=== PATIENT | female | born 1985 | race Caucasian/White ===

== ENCOUNTER 2020-06-15 10:00 | Outpatient (RCR) | payer MEDICAID, SELFPAY ==
[2020-06-15 10:07] VITALS: BP 115/74; PULSE 76; O2SAT 98
== END 2020-07-20 09:19 | disposition home or self-care (01) ==
LOC: HO.PTCHIC 10:00
PROVIDERS: PCP Internal Medicine; Visit Provider Internal Medicine
DX: R42 Dizziness and giddiness (principal)
CPT/HCPCS: 97161

== ENCOUNTER 2020-12-07 10:05 | Outpatient (REF) | payer MEDICAID, SELFPAY | END 2020-12-07 10:06 | disposition home or self-care (01) | LOC: HO.HMGCX 10:05 | PROVIDERS: PCP Internal Medicine; Visit Provider Internal Medicine | DX: Z13.89 Encounter for screening for other disorder (principal) ==

== ENCOUNTER 2020-12-11 10:04 | Outpatient (REF) | payer MEDICAID, SELFPAY ==
--- NOTE | ~2020-12-11 | US_ITS ---
EXAMINATION: US ABDOMEN COMPLETE CLINICAL INFORMATION: Cholesterolosis of gallbladder. COMPARISON: None TECHNIQUE: Real-time imaging of the abdominal viscera. FINDINGS: PANCREAS: Normal. ABDOMINAL AORTA: The proximal, mid, and distal segments are normal in caliber. INFERIOR VENA CAVA: Visualized portions are normal. LIVER: Normal. The liver is normal in size. The liver contour is normal. Parenchymal echogenicity is normal. No focal hepatic lesion. There is no intrahepatic biliary duct dilatation seen. GALLBLADDER: 4 mm and 2 mm nonmobile cholesterol polyps are seen. The gallbladder is physiologically distended without evidence of stones, sludge, wall thickening or pericholecystic fluid. COMMON BILE DUCT: Normal in caliber measuring 0.52 cm in diameter. RIGHT KIDNEY: Normal. No hydronephrosis. No renal calculi or focal parenchymal lesions. The kidney measures 10.7 cm in maximum dimension. LEFT KIDNEY: Normal. No hydronephrosis. No renal calculi or focal parenchymal lesions. The kidney measures 10.4 cm in maximum dimension. SPLEEN: Normal. The spleen measures 9.3 cm in maximum dimension. FREE FLUID: None. US/US abdomen complete IMPRESSION: 4 mm and 2 mm nonmobile gallbladder cholesterol polyps are noted. The examination is otherwise unremarkable.
== END 2020-12-11 10:05 | disposition home or self-care (01) ==
LOC: HO.HMGCX 10:04
PROVIDERS: PCP Internal Medicine; Visit Provider Internal Medicine
DX: K82.4 Cholesterolosis of gallbladder (principal)
CPT/HCPCS: 76700

== ENCOUNTER 2021-01-21 08:57 | Outpatient (REF) | payer MEDICAID, SELFPAY ==
--- NOTE | ~2021-01-21 | FL_ITS ---
EXAMINATION: FL BARIUM SWALLOW CLINICAL INFORMATION: Dysphagia COMPARISON: None TECHNIQUE: Barium swallow examination is performed using fluoroscopic evaluation in addition to multiple fluoroscopic spot views. The patient is imaged both upright and prone and using both thick and thin sulfate along with effervescent granules. Barium tablet was also administered. Fluoroscopy time: 1 minutes DAP: 5 Gycm2 Images: 32 FINDINGS: The swallowing mechanism is normal. No aspiration or penetration is seen. Esophageal motility is normal. There is mild gastroesophageal reflux. No hernia, mass or stricture is seen. The barium tablet passed freely into the stomach. FL/FL barium swallow IMPRESSION: Mild gastroesophageal reflux otherwise unremarkable exam.
== END 2021-01-21 08:58 | disposition home or self-care (01) ==
LOC: HO.XRAY 08:57
PROVIDERS: Visit Provider Family Medicine
DX: R13.10 Dysphagia, unspecified (principal)
CPT/HCPCS: 74220

== ENCOUNTER 2022-01-15 16:02 | Outpatient (REF) | payer MEDICAID, SELFPAY ==
--- NOTE | ~2022-01-15 | XR_ITS ---
EXAMINATION: XR LUMBOSACRAL SPINE WITH OBLIQUES CLINICAL INFORMATION: Lumbago with sciatica. COMPARISON: None TECHNIQUE: AP, both oblique, and lateral views of the lumbar spine. Lateral view of the lumbosacral junction. FINDINGS: The vertebral heights and alignment is normal. There is a rudimentary disc at the S1-S2 disc level. The vertebral bodies and posterior elements are normal. No lytic or sclerotic process seen. The paraspinal soft tissues are normal. Incidental finding of an IUD in the pelvis is noted. XR/XR lumbar spine 4V min IMPRESSION: Unremarkable lumbar spine exam examination.
== END 2022-01-15 16:03 | disposition home or self-care (01) ==
LOC: HO.HMGCX 16:02
PROVIDERS: PCP Internal Medicine; Visit Provider Emergency Medicine
DX: M54.41 Lumbago with sciatica, right side (principal); M54.42 Lumbago with sciatica, left side
CPT/HCPCS: 72110

== ENCOUNTER 2022-04-15 08:39 | Outpatient (REF) | payer MEDICAID, SELFPAY ==
[2022-04-15 10:11] LABS: Alanine Aminotransferase 31 U/L (0-31); Albumin Level 4.6 g/dL (3.5-5.0); Alkaline Phosphatase 52 U/L (39-117); Aspartate Amino Transferase 19 U/L (5-31); Bilirubin Direct < 0.2 mg/dL (0.0-0.5); Bilirubin Total 0.5 mg/dL (0.0-1.0); Cholesterol 220 mg/dL; HDL Cholesterol 57 mg/dL; LDL Cholesterol Calculated 138 mg/dl; Total Protein 7.5 g/dL (6.5-8.0); Triglycerides 126 mg/dL
== END 2022-04-15 08:40 | disposition home or self-care (01) ==
LOC: HO.LAB 08:39
PROVIDERS: PCP Internal Medicine; Visit Provider Internal Medicine
DX: E78.00 Pure hypercholesterolemia, unspecified (principal)
CPT/HCPCS: 36415; 80061; 80076

== ENCOUNTER 2022-04-18 12:54 | Outpatient (REF) | payer MEDICAID, SELFPAY ==
[2022-04-18 14:59] LABS: Influenza A PCR NEGATIVE (Negative); Influenza B PCR NEGATIVE (Negative); Resp Syncy Virus RNA Qual PCR NEGATIVE (Negative); SARS COV2 PCR INHOUSE NEGATIVE (Negative)
== END 2022-04-18 12:55 | disposition home or self-care (01) ==
LOC: HO.LAB 12:54
PROVIDERS: PCP Internal Medicine; Visit Provider Physician Assistant
DX: Z20.822 Contact with and (suspected) exposure to COVID-19 (principal)
CPT/HCPCS: 0241U

== ENCOUNTER 2022-08-15 13:22 | Emergency (ER) | payer MEDICAID, SELFPAY ==
[2022-08-15 13:23] VITALS: BP 123/76; PULSE 92; RESP 18; TEMP 36.7; O2SAT 97; BMI 26.6
--- NOTE | 2022-08-15 13:23 | ED.GENADULT ---
HPI - General Adult General Chief complaint: Upper Respiratory Symptoms Stated complaint: running nose Time Seen by Provider: 08/15/22 13:23 Source: patient Mode of arrival: ambulatory Limitations: no limitations History of Present Illness HPI narrative: Patient is a 36 year old assigned female at with no reported medical history presenting to the emergency department today with recent COVID-19 exposure. Patient states that she was recently exposed to someone confirmed to have COVID-19 and she would like PCR testing. Patient denies any dizziness, lightheadedness, abdominal pain, nausea, vomiting, fever, chills, blurry vision, double vision, loss of vision, chest pain, difficulty breathing, shortness of breath, back pain, night sweats, pain with urination, increased urinary frequency, increased urinary urgency, blood in her urine or stool, syncope or a near syncopal episode, recent trauma or falls, bowel incontinence, bladder incontinence, bowel retention, bladder retention, or any other complaints at this time. Onset (ago): day(s) Severity: mild Relieving factors: none Exacerbating factors: none Associated symptoms: denies other symptoms Treatments prior to arrival: none Related Data Allergies Allergy/AdvReac Type Severity Reaction Status Date / Time No Known Allergies Allergy Verified 08/15/22 13:25 Review of Systems Constitutional: Constitutional: Reports no additional constitutional complaints, Denies chills, Denies fever(s) and Denies night sweats Eyes: Eyes: Reports no additional eye complaints, Denies blurry vision, Denies change in vision, Denies diplopia, Denies eye discharge, Denies loss of vision and Denies eye pain ENT: Denies dizziness Cardiovascular: Cardiovascular: Reports no additional cardiovascular complaints, Denies chest pain, Denies lightheadedness, Denies Loss of Consciousness and Denies dyspnea Respiratory: Respiratory: Reports no additional respiratory complaints and Denies dyspnea Gastrointestinal: Gastrointestinal: Reports no additional gastrointestinal complaints, Denies abdominal pain, Denies melena, Denies hematochezia, Denies change in bowel habits and Denies change in stool character Genitourinary: Genitourinary: Denies hematuria, Denies urinary frequency, Denies dysuria, Denies urinary incontinence, Denies urinary hesitancy and Denies urinary urgency Musculoskeletal: Musculoskeletal: Reports no additional musculoskeletal complaints, Denies numbness and Denies tingling Neurologic: Denies dizziness, Denies loss of vision, Denies numbness and Denies tingling Psychiatric: Psychiatric: Reports no additional psychiatric complaints Endocrine: Endocrine: Reports no additional endocrine complaints Hematologic/Lymphatic: Hematologic/Lymphatic: Reports no additional hematologic/lymphatic complaints Allergic/Immunologic: Allergic/Immunologic: Reports no additional allergic/immunologic complaints [facility] Past Medical History Attestation statement: The following information was validated with the patient. Source: old records reviewed and nursing notes reviewed Medical History No known health problems Social History Social History Alcohol intake: never Smoked in Last 30 Days: No Use of substances other than those prescribed or required for medical reasons: No Advance Directives: No Advance Directives Information Provided: Yes Patient : No Physical Exam ED Vital Signs: Vital Signs - 24 hr 08/15/22 13:23 Temperature 98.0 F Pulse Rate 92 Respiratory Rate 18 Blood Pressure 123/76 Pulse Oximetry 97 Oxygen Delivery Method Room Air BMI result Body Mass Index 26.6 Const General: cooperative, no acute distress, alert and awake Nutritional Appearance: well nourished Orientation/consciousness: patient oriented x3 Limitations: no limitations HENMT Head: Yes normal to inspection and Yes atraumatic Ears: hearing grossly normal bilaterally and external ears normal General nose exam: Normal external nose present, no nasal discharge noted and no epistaxis Face and sinus: Yes normal facial exam, No abrasion and No laceration Mouth: Normal oral and palatal mucosa present, no drooling and no muffled voice Eyes General: appearance normal, both eyes and all related structures Periorbital: periorbital findings normal Eyelids: Yes eyelids normal Conjunctivae: conjunctivae normal Pupils: Equal, round and reactive pupils present EOM: EOMs intact bilaterally Neck Neck: Yes normal visual inspection, Yes full ROM and Yes no lymphadenopathy Chest Chest palpation & inspection: normal inspection of the chest Resp Effort & Inspection: normal respiratory effort and able to speak in complete sentences GI Inspection: Yes normal to inspection Neuro General: patient oriented x3 and moves all extremities Cranial nerves: Yes Equal, round and reactive pupils present Cognition (Neuro): normal cognition Motor exam (neuro): 5/5 motor strength present throughout Sensory Exam: Normal double simultaneous stimulation for sensation Coordination: [id number] test normal Extrem General: Yes normal to inspection, Yes full ROM and Yes capillary refill normal Psych Appearance: grossly normal Mental Status: mental status grossly normal Affect: normal affect Attitude: cooperative Thought process: Normal thought process present Thought content: Normal thought content present Insight: Good insight present (Psych) Medical Decision Making Medical Decision Making MDM Narrative: Patient is a 36 year old assigned female at with no reported medical history presenting to the emergency department today after COVID-19 exposure. Patient's physical exam was unremarkable. Patient's COVID/RSV/Influenza swab was negative. I explained my physical exam findings as well as all test results to the patient. I answered all questions asked by the patient. I stressed the importance of the patient taking her medication as prescribed. I stressed the importance of the patient following up with her primary care provider. I stressed the importance of the patient returning to the emergency department immediately if her symptoms were to worsen or if she were to develop any dizziness, shortness of breath, difficulty breathing, chest pain, blurry vision, loss of vision, nausea, vomiting, abdominal pain, fever, chills, back pain, or any other complaints. Patient verbalized agreement and understanding with this treatment plan and discharge. Differential Diagnosis Differential Diagnoses: The differential diagnosis associated with the presentation includes COVID-19 exposure Lab Data Labs: Lab Results 08/15/22 Range/Units 13:30 Influenza Type A (PCR) NEGATIVE (Negative) Influenza Type B (PCR) NEGATIVE (Negative) RSV RNA Qual (PCR) NEGATIVE (Negative) SARS-CoV-2 RNA (RT-PCR) NEGATIVE (Negative) Discharge Plan Discharge Clinical Impression: Close exposure to COVID-19 virus Patient Disposition: Home, Self-Care Instructions: COVID-19 (Coronavirus Disease 2019) (ED) Additional Instructions: Follow up with your primary care provider. Return to the emergency department immediately if your symptoms worsen or if you develop any dizziness, shortness of breath, difficulty breathing, chest pain, blurry vision, loss of vision, nausea, vomiting, abdominal pain, fever, chills, back pain, or any other complaints. Referrals: Avinash Jiménez MD [Primary Care Provider] - Interventions: ED Discharge Assessment Last Done: 08/15/22 13:29 Discharge Date/Time: 08/15/22 13:33 Print Language: Citizen Of [place]
--- NOTE | 2022-08-15 13:28 | PC.NURSE ---
PT HAD COVID EXPOSURE LAST WEEK AND WANTS COVID TEST DONE. NO SYMPTOMS.
--- OUTSIDE RECORDS SUMMARY | 2022-08-15 13:36 | XMS_ITS | Continuity of Care Document ---
Author Name Unknown Organization [facility] Address [address] [place] [id number]- Care Team Providers Care Antenna Installer Name Role Phone Tom White MD, Avinash Primary Care Phys ician [place] [facility] [place]s): 01/05/22 - 01/05/[address] [address]- Discharge Disposition: A-D/C Walkout Attending Physician: Not on Staff, Attending MD Admitting Physician: Not on Staff, Admitting MD Referring Physician: Not on Staff, Referring MD Allergies, Adverse Reactions, Alerts No Known Allergies Immunizations Given and Recorded Vaccine Date Status Refusal Reason influenza virus vaccine, inactivated 02/28/13 Give n influenza virus vaccine, inactivated 1 04/05/12 Gi kacie influenza virus vaccine, inactivated 03/30/06 Give n tetanus/diphtheria/pertussis, acel(Tdap) 2 12/15/11 Given Fluarix (oldterm) 3 03/17/11 Given Human Papillomavirus Vaccine 4 03/17/11 Given Human Papillomavirus Vaccine 5 12/19/09 Given Gardasil (oldterm) 6 05/17/10 Given influ virus vac, H1N1, inactive(oldterm) 7 04/03/09 Given Influenza Vaccine (oldterm) 8 01/22/09 Given 1Admin Note: VIS 11/2011 2Admin Note: VIS 05/22 3Admin Note: 12/03/10 VIS Given. 4Admin Note: 08/07/09 VIS Given. 5Admin Note: 06/12/06 VIS Given. 6Admin Note: Given in left deltoid. No problems or complaints. Remained in office to assess for reactions. Left without incident 7Admin Note: vis given dated 02/16 8Admin Note: vis given dated 11/15 Medications Anusol-HC 2.5% cream with applicator 1 application, Rectally, 2 times a day, # 30 Gm, 0 Refills, Maintenance, 12/16/21 18:36:00 EDT, Cream, [id number], Partial fill upon patient request if the prescription is for a schedule II opioid drug., 1 application Rectally 2 times a day, 1... Start Date: 12/16/21 Status: Ordered ibuprofen 600 mg oral tablet 1 tablet = 600 mg, By Mouth, 4 times a day, PRN Pain, # 40 tablet, 1 Refills, Maintenance, 09/12/1419:10:16, Tablet, 1 tablet By Mouth 4 times a day,PRN:Pain Start Date: 09/11/13 Status: Ordered Ortho Tri-Cyclen Lo oral tablet 1 tablet, By Mouth, Daily, # 28 tablet, 11 Refills, Maintenance, 11/27/20 16:19:00 EDT, Tablet, [id number], Partial fill upon patient request if the prescription is for a schedule II opioid drug., 1 tablet By Mouth Daily, 163.7, cm, 04/17/20 9... Start Date: 11/27/20 Status: Ordered Paragard IUD See Instructions, # 1 applicator, Maintenance, Inserted immediately , 10/12/12 11:37:53 Start Date: 10/12/12 Status: Ordered tuberculin purified protein derivative 5 tu/0.1 ml intradermal solution = 5 units, Intradermal, Once, Aplisol exp Lot [id number] Given R arm, # 1 each, 0 Refills, SoftStop, Solution Start Date: 05/06/13 Status: Ordered Vitamin B Complex oral tablet, extended release By Mouth, Daily, 0 Refills, Maintenance, 04/25/19 15:47:00 EST Start Date: 04/25/19 Status: Ordered Zofran 4 mg oral tablet 1 tablet = 4 mg, By Mouth, Every 8 hours, PRN as needed for nausea/vomiting, # 14 tablet, 0 Refills, Maintenance, 03/21/20 22:39:00 EST, Tablet, [id number], 163.7, cm, 06/13/19 14:47:00 EST, Height, 73.5, kg, 06/13/19 14:47:00 EST, Dry Weight Start Date: 03/21/20 Status: Ordered Zofran 4 mg oral tablet 1 tablet = 4 mg, By Mouth, Every 8 hours, PRN as needed for nausea/vomiting, # 15 tablet, 0 Refills, Maintenance, 03/25/20 13:08:00 EST, Tablet, [id number], Partial fill upon patient request,163.7, cm, 06/13/19 14:47:00 EST, Height, 73.5, kg,... Start Date: 03/25/20 Stop Date: 03/30/20 Status: Ordered Vital Signs Most recent to oldest [Reference Range]: 1 2 3 Height 160 cm (01/05/22 9:38 AM) 160 cm (01/05/22 8:40 AM) Weight 69 kg (01/05/22 9:38 AM) 69 kg (01/05/22 8:40 AM) Oxygen Saturation [94-100 %] 100 % (01/05/22 1:09 PM) 99 % (01/05/22 11:05 AM) 100 % (01/05/22 8:40 AM) Pulse Rate [55-90 bpm] 70 bpm (01/05/22 1:09 PM) 76 bpm (01/05/22 11:05 AM) 78 bpm (01/05/22 8:40 AM) Body Mass Index [18.5-24.99] 26.95 *H* (01/05/22 8:40 AM) Blood Pressure [90-138/55-84 mm Hg] 100/65mm Hg (01/05/22 1:09 PM) 105/58mm Hg (01/05/22 11:05 AM) 108/73mm Hg (01/05/22 8:40 AM) Respiratory Rate [16-30 br/min] 18 br/min (01/05/22 1:09 PM) 16 br/min (01/05/22 8:40 AM) Temperature [96.8-100.4 DegF] 96.6 DegF *L* (01/05/22 1:09 PM) 96.6 DegF *L* (01/05/22 11:05 AM) 98.5 DegF (01/05/22 8:40 AM) Mode of Delivery (Oxygen) Room air (01/05/22 1:09 PM) Room air (01/05/22 11:05 AM) Room air (01/05/22 8:40 AM) Blood pressure sites Arm, right (01/05/22 1:09 PM) Arm, right (01/05/22 11:05 AM) Arm, right (01/05/22 8:40 AM) Temperature Route Oral (01/05/22 1:09 PM) Temporal (01/05/22 11:05 AM) Oral (01/05/22 8:40 AM) Dry Weight 62 kg (01/05/22 9:38 AM) 62 kg (01/05/22 8:40 AM) Weight Obtained Via Patient/family stated (01/05/22 8:40 AM) Dry Weight Obtained Via Patient/family stated (01/05/22 8:40 AM) Social History Social History Type Response Smoking Status Never (less than 100 in lifetime) entered on: 10/19/18 Sex Female Care Team Personnel Name: Avinash Jiménez MD Address: [address] [place] [id number]
--- OUTSIDE RECORDS SUMMARY | 2022-08-15 13:36 | XMS_ITS | Continuity of Care Document ---
Author Name Unknown Organization [facility] Address [address] [address]- Care Team Providers Care C Software Developer Name Role Phone Mary Forrester MD Primary Care Physician [place] [facility] [place] 06[place]/19 [facility] [address] [address]- [facility] Attending Physician: AdmtrAlyssa Allergies, Adverse Reactions, Alerts Substance Reaction Severity Status NKA Active Immunizations Given and Recorded Vaccine Date Status [...] 8Admin Note: vis given dated 11/15 Medications ibuprofen 600 mg oral tablet 1 tablet = 600 mg, By Mouth, 4 times a day, PRN Pain, # 40 tablet, 1 Refills, Maintenance, 09/12/1419:10:16, Tablet, 1 tablet By Mouth 4 times a day,PRN:Pain Start Date: 09/11/13 Status: Ordered Paragard IUD See Instructions, # 1 applicator, Maintenance, Inserted immediately , 10/12/12 11:37:53 Start Date: 10/12/12 Status: Ordered tuberculin purified protein derivative 5 tu/0.1 ml intradermal solution = 5 units, Intradermal, Once, Aplisol exp Lot [id number] Given R arm, # 1 each, 0 Refills, SoftStop, Solution Start Date: 05/06/13 Status: Ordered Vitamin B Complex oral tablet, extended release By Mouth, Daily, 0 Refills, Maintenance, 04/25/19 15:47:00 EST Start Date: 04/25/19 Status: Ordered Problem List Condition Effective Dates Status Health Status Inform ant False labor(Confirmed) Active Social History Social History Type Response Smoking Status Never (less than 100 in lifetime) entered on: 10/19/18 Sex
--- OUTSIDE RECORDS SUMMARY | 2022-08-15 13:36 | XMS_ITS | Continuity of Care Document ---
Author Name Unknown [facility] Address [address] [place] [id number]- Care Team Providers Care Acid Operator Name Role Phone Tom White MD, Avinash Primary Care Phys ician En[place] [facility] [place] Date(s): 11/22/20 - 12/22/20 [facility] [address] [id number] Allergies, Adverse Reactions, Alerts Substance Reaction Severity [...] 5 units, Intradermal, Once, Aplisol exp Lot [id number] Given R arm, # 1 each, 0 [...] Date: 03/25/20 Stop Date: 03/30/20 Status: Ordered Social History Social History Type Response Smoking Status Never (less than 100 in lifetime) entered on: 10/19/18 Sex Female
--- OUTSIDE RECORDS SUMMARY | 2022-08-15 13:36 | XMS_ITS | Continuity of Care Document ---
Author Name Unknown Organization [facility] Address [address] [place] [address]- Care Team Providers Care Optical Laboratory Technician Name Role Phone Mary Forrester MD Primary Care Physician [phone] [place] [facility] [place] [facility] [address]th [place] [address]- Attending Physician: Nathaile Manzanares MD Admitting Physician: Nathalie Manzanares MD Referring Physician: Nathalie Manzanares MD Allergies, Adverse Reactions, Alerts Substance Reaction Severity [...] 5 units, Intradermal, Once, Aplisol exp Lot [id number] Given R arm, # 1 each, 0 [...]
--- OUTSIDE RECORDS SUMMARY | 2022-08-15 13:36 | XMS_ITS | Continuity of Care Document ---
Author Name Unknown Organization [facility] Address [address] [place] [address] [address] [place] [address]- Care Team Providers Care Check Processing Clerk Name Role Phone Tom White MD, Avinash Primary Care Phys ician [place] [facility] [place] - 01/15/[address] [place] [address]- Attending Physician: Jean Paul Hendrickson MD Referring Physician: Avinash Jiménez MD Allergies, Adverse Reactions, Alerts No Known [...] 5 units, Intradermal, Once, Aplisol exp Lot [id number] Given R arm, # 1 each, 0 [...] Refills, Maintenance, 03/25/20 13:08:00 EST, Tablet, [id number], Partial fill upon patient request,163.7, cm, 06/13/19 14:47:00 EST, Height, 73.5, kg,... Start Date: 03/25/20 Stop Date: 03/30/20 Status: Ordered Social History Social History Type Response Smoking Status Never (less than 100 in lifetime) entered on: 10/19/18 Sex Female Care Team Personnel Name: Tom White MD, Avinash Address: [address] [place] [id number]
--- OUTSIDE RECORDS SUMMARY | 2022-08-15 13:36 | XMS_ITS | Continuity of Care Document ---
Author Name Unknown Organization [facility] Address [address] [place] [address] [address] [place] [address]- Care Team Providers Care Teller Coordinator Name Role Phone Tom White MD, Avinash Primary Care Phys ician Encounter [facility] Date(s): 12/20/21 - 01/19/22 [facility] [address] [place], [place] [address] Attending Physician: Alyssa Benson Admitting Physician: AdmAlyssa chappell Referring Physician: AdmtrAlyssa Allergies, Adverse Reactions, Alerts No Known Allergies [...] 5 units, Intradermal, Once, Aplisol exp Lot [id number] Given R arm, # 1 each, 0 [...] Refills, Maintenance, 03/25/20 13:08:00 EST, Tablet, [id number], Partial fill upon patient request,163.7, cm, 06/13/19 14:47:00 EST, Height, 73.5, kg,... Start Date: 03/25/20 Stop Date: 03/30/20 Status: Ordered Social History Social History Type Response Smoking Status Never (less than 100 in lifetime) entered on: 10/19/18 Sex Female Care Team Personnel Name: Tom White MD, Avinash Address: [address] [place] [id number]
--- OUTSIDE RECORDS SUMMARY | 2022-08-15 13:37 | XMS_ITS | Continuity of Care Document ---
Author Name Unknown Organization [facility] Address [address] [place] [address] [address] [place] [address]- Care Team Providers Care Java J2Ee Application Developer Name Role Phone Tom White MD, Avinash Primary Care Phys ician Encounter [facility] Date(s): 12/16/21 - 01/15/22 [facility] [address] [place], [place] [address] Attending Physician: Alyssa Benson Admitting Physician: AdmAlyssa [...] 5 units, Intradermal, Once, Aplisol exp Lot [id number] Given R arm, # 1 each, 0 [...] Personnel Name: Tom White MD, Avinash Address: [address] [place] [id number]
--- OUTSIDE RECORDS SUMMARY | 2022-08-15 13:37 | XMS_ITS | Continuity of Care Document ---
Author Name [facility] Address [address] [place] [address]- Care Team Providers Care Tig Welder Name Role Phone Avinash Jiménez MD Primary Care Phys ician Encounter [facility] Date(s): 01/21/22 - 02/27/22 [facility] [address] [place] [address]- Attending Physician: Not on Staff, Attending MD Referring Physician: Avinash Jiménez MD Allergies, [...] 5 units, Intradermal, Once, Aplisol exp Lot [id number] Given R arm, # 1 each, 0 [...] Date: 03/25/20 Stop Date: 03/30/20 Status: Ordered Problem List Condition Confirmation Course Effective Dates Status Health St [facility] Informant Encounter for IUD removal 1 Confirmed Active 1paragard removed 01/21/22 after x-ray at [place] showed possible malposition and pt chose removal. Social History Social History Type Response Smoking Status Never (less than 100 in lifetime) entered on: 10/19/18 Sex Female Patient Care team information Personnel Name: Tom White MD, Avinash Address: Address: [address] [place] [id number]
--- OUTSIDE RECORDS SUMMARY | 2022-08-15 13:37 | XMS_ITS | Continuity of Care Document ---
Author Name Unknown Organization [facility] Address [address] [place] [address]- Care Team Providers Care Cytologist Name Role Phone Tom White MD, Avinash Primary Care Phys ician [facility] Date(s): 01/20[facility]22 - 03/07/22 [facility] [address] [address]- Attending Physician: Not on Staff, Attending MD Referring Physician: Radha SÁNCHEZ MOSAICIST, Yury Sorensen Allergies, Adverse Reactions, Alerts No Known Allergies [...] dated 02/16 8Admin Note: vis given dated 7/08 Medications Anusol-HC 2.5% cream with applicator 1 [...] 5 units, Intradermal, Once, Aplisol exp Lot [id number] Given R arm, # 1 each, 0 [...] Active 1paragard removed 01/21/22 after x-ray at [facility] showed possible malposition and pt chose removal. Social History Social History Type Response Smoking Status Never (less than 100 in lifetime) entered on: 10/19/18 Sex Female Patient Care team information Personnel Name: Tom White MD, Avinash Address: Address: [address] [place] [id number]
--- OUTSIDE RECORDS SUMMARY | 2022-08-15 13:37 | XMS_ITS | Continuity of Care Document ---
Author Name Unknown Organization [facility] Address [address] [place] [address]- Care Team Providers Care Check Processor Name Role Phone Tom White MD, Avinash Primary Care Phys ician [facility] Date[facility]s): 01/21/22 - 02/20/22 [facility] [address] [place] [address]- Attending Physician: Admtr, Ar8 Allergies, Adverse Reactions, Alerts No Known Allergies [...] 5 units, Intradermal, Once, Aplisol exp Lot [id number] Given R arm, # 1 each, 0 [...] Refills, Maintenance, 03/25/20 13:08:00 EST, Tablet, [id number], Partial fill upon patient request,163.7, cm, 06/13/19 14:47:00 EST, Height, 73.5, kg,... Start Date: 03/25/20 Stop Date: 03/30/20 Status: Ordered Problem List Condition Confirmation Course Effective Dates Status Health St [facility] Informant Encounter for IUD removal 1 Confirmed Active 1paragard removed 01/21/22 after x-ray at [place] showed possible malposition and pt chose removal. Social History Social History Type Response Smoking Status Never (less than 100 in lifetime) entered on: 10/19/18 Sex Female Patient Care team information Personnel Name: Avinash Jiménez MD Address: Address: [address] [place] [id number]
--- OUTSIDE RECORDS SUMMARY | 2022-08-15 13:37 | XMS_ITS | Continuity of Care Document ---
Author Name Unknown Organization [facility] Address [address] [address]- Care Team Providers Care Sports Management Intern Name Role Phone Mary Forrester MD Primary Care Physician Encounter [facility] Date(s): 05/18/19 - 06/25/19 [facility] [address] [address]- [facility] Attending Physician: Not on Staff, Attending MD Referring Physician: Kathrin Milton CNM Allergies, Adverse Reactions, Alerts Substance Reaction Severity [...] 5 units, Intradermal, Once, Aplisol exp Lot [id number] Given R arm, # 1 each, 0 [...]
--- OUTSIDE RECORDS SUMMARY | 2022-08-15 13:37 | XMS_ITS | Continuity of Care Document ---
Author Name Unknown Organization [facility] Address [address] [place] [address], [address] [place] [address]- Care Team Providers Care Career Technology Teacher Name Role Phone Mary Forrester MD Primary Care Physician [id number] Date[facility] - [facility] [address] [facility], [address] [place] [address]- Attending Physician: Nathalie Manzanares MD Admitting Physician: Nathalie Manzanares MD Referring Physician: Mary Forrester MD Allergies, Adverse Reactions, Alerts Substance Reaction [...] 5 units, Intradermal, Once, Aplisol exp Lot [id number] Given R arm, # 1 each, 0 [...]
--- OUTSIDE RECORDS SUMMARY | 2022-08-15 13:37 | XMS_ITS | Continuity of Care Document ---
Author Name Unknown Organization [facility] Address [address] [place] [address]- Care Team Providers Care Second Baller Name Role Phone Tom White MD, Avinash Primary Care Phys ician [facility] Date[facility]s): 12/16/21 - 01/15/22 [facility] [address] [place] [address]- Attending Physician: Admtr, Ar8 Allergies, Adverse Reactions, [...] 5 units, Intradermal, Once, Aplisol exp Lot [id number] Given R arm, # 1 each, 0 [...] Refills, Maintenance, 03/25/20 13:08:00 EST, Tablet, [id number], Partial fill upon patient request,163.7, cm, 06/13/19 14:47:00 EST, Height, 73.5, kg,... Start Date: 03/25/20 Stop Date: 03/30/20 Status: Ordered Social History Social History Type Response Smoking Status Never (less than 100 in lifetime) entered on: 10/19/18 Sex Female Care Team Personnel Name: Avinash Jiménez MD Address: [address] [place] [address]
--- OUTSIDE RECORDS SUMMARY | 2022-08-15 13:37 | XMS_ITS | Continuity of Care Document ---
Author Name Unknown Organization [facility] Address [address] [place] [address]- Care Team Providers Care Roof Bolting Coal Miner Name Role Phone Tom White MD, Avinash Primary Care Phys ician [facility] Date[facility]s): 04/17/20 - [facility]17/20 [facility] [address] [place] [address]- Attending Physician: Admtr, Ar8 Allergies, Adverse Reactions, Alerts Substance Reaction Severity [...] 5 units, Intradermal, Once, Aplisol exp Lot [id number] Given R arm, # 1 each, 0 [...] 0 Refills, Maintenance, 03/21/20 22:39:00 EST, Tablet, [facility] #[id number], 163.7, cm, 06/13/19 14:47:00 EST, Height, 73.5, kg, 06/13/19 14:47:00 EST, Dry Weight Start Date: 03/21/20 Status: Ordered Zofran 4 mg oral tablet 1 tablet = 4 mg, By Mouth, Every 8 hours, PRN as needed for nausea/vomiting, # 15 tablet, 0 Refills, Maintenance, 03/25/20 13:08:00 EST, Tablet, [facility] #[id number], Partial fill upon patient request,163.7, cm, 06/13/19 14:47:00 EST, Height, 73.5, kg,... Start Date: 03/25/20 Stop Date: 03/30/20 Status: Ordered Social History Social History Type Response Smoking Status Never (less than 100 in lifetime) entered on: 10/19/18 Sex Female
--- OUTSIDE RECORDS SUMMARY | 2022-08-15 13:37 | XMS_ITS | Continuity of Care Document ---
Author Name Unknown Organization [facility] Address [address] [place] [address]- Care Team Providers Care Family Day Care Provider Name Role Phone Mary Forrester MD Primary Care Physician [facility] Date(s): 05/26/19 - 06/02/[address] [address]- [facility] Attending Physician: Gena Carroll CNM Allergies, Adverse Reactions, Alerts Substance Reaction [...] 5 units, Intradermal, Once, Aplisol exp Lot [id number] Given R arm, # 1 each, 0 [...]
--- OUTSIDE RECORDS SUMMARY | 2022-08-15 13:37 | XMS_ITS | Continuity of Care Document ---
Author Name Unknown Organization [facility] Address [address] [place] [address]- Care Team Providers Care Diesel Retrofit Designer Name Role Phone Mary Forrester MD Primary Care Physician [phone] Encounter [facility] Date(s): 04/25/19 - 05/05/19 [facility] [address] [place] [address] Attending Physician: Alyssa Benson Admitting Physician: Alyssa Benson Referring Physician: AdmtrAlyssa Allergies, Adverse Reactions, Alerts Substance [...] 5 units, Intradermal, Once, Aplisol exp Lot [id number] Given R arm, # 1 each, 0 [...]
--- OUTSIDE RECORDS SUMMARY | 2022-08-15 13:37 | XMS_ITS | Continuity of Care Document ---
Author Name Unknown Organization [facility] Address [address] [facility], 4t [place] [address]- Care Team Providers Care Plug Sorter Name Role Phone Mary Forrester MD Primary Care Physician Encounter [facility] [place] Date(s): 06/13/19 - 08/10/19 [facility] [address] [facility], 4th [place] [address]- Attending Physician: Nathalie Manzanares MD Admitting Physician: [...] 5 units, Intradermal, Once, Aplisol exp Lot [id number] Given R arm, # 1 each, 0 [...]
--- OUTSIDE RECORDS SUMMARY | 2022-08-15 13:37 | XMS_ITS | Continuity of Care Document ---
Author Name Unknown [facility] Address Unknown Care Team Providers Care Tactical Debriefer Name Role Phone Tom White MD, Avinash Primary Care Phys ician [facility] Date(s): 02/12/21 - 03/14/21 [facility] Attending Physician: trAlyssa Allergies, Adverse Reactions, Alerts Substance Reaction Severity [...] 5 units, Intradermal, Once, Aplisol exp Lot [id number] Given R arm, # 1 each, 0 [...]
--- OUTSIDE RECORDS SUMMARY | 2022-08-15 13:37 | XMS_ITS | Continuity of Care Document ---
Author Name Unknown Organization [facility] Address [address] [place] [address]- Care Team Providers Care Numerical Control Programmer Name Role Phone Not on Staff, PCP Primary Care Physician Unavail able [facility]counter [facility] Date(s): 03/18/20 - 03/19/[address] [address]- Encounter Diagnosis COVID-19(Final) - 03/19/20 Pneumonia(Final) - 03/19/20 Discharge Disposition: A-D/C Home Attending Physician: Kenneth Ceron MD Admitting Physician: Kenneth Ceron MD Referring Physician: Not on Staff, Referring MD Allergies, Adverse Reactions, Alerts Substance Reaction [...] 8Admin Note: vis given dated 11/15 Medications doxycycline hyclate 100 mg oral capsule 1 capsule = 100 mg, By Mouth, 2 times a day, for 7 days, # 14 capsule, 0 Refills, Acute 03/26/20 8:49:00 EST, 03/19/20 8:49:00 EST, Capsule, [id number], 163.7, cm, 06/13/19 14:47:00 EST, Height, 73.5, kg, 06/13/19 14:47:00 EST, Dry Weight Start Date: 03/19/20 Stop Date: 03/26/20 Status: Ordered ibuprofen 600 mg oral tablet [...] 5 units, Intradermal, Once, Aplisol exp Lot [id number] Given R arm, # 1 each, 0 Refills, SoftStop, Solution Start Date: 05/06/13 Status: Ordered Vitamin B Complex oral tablet, extended release By Mouth, Daily, 0 Refills, Maintenance, 04/25/19 15:47:00 EST Start Date: 04/25/19 Status: Ordered Problem List Condition Effective Dates Status Health Status Inform ant False labor(Confirmed) Active Results Radiology Reports * Exam Date Time Procedure Performing Provider Status 03/19/20 12:18 AM Chest Portable Randolph Briscoe; Aut h (Verified) Notes: (Chest Portable) Reason For Exam: Chest Pain;Other: RESULT: Chest Portable Examination: Portable chest performed on 03/18/2020. History: : Positive. Fever. Left chest pain. Findings: A frontal view of the chest is submitted without comparison. The cardiac and mediastinal silhouettes are within normal limits. There is a subtle left lower lobeopacity. The lungs are otherwise clear. The osseous structures are intact. IMPRESSION: Subtle left lower lobe opacity, likely representing pneumonia. A Yellow message has been communicated via the [employer]iculous system on 03/19/2020 8:08 AM, Message ID [id number]. WSN: [id number] Ordering Physician: Hawk Johnson Dictated By: Meghna Stokes MD Dictated Date/Time: 03/19/20 8:08 am Reviewed By: Meghna Stokes MD Signed By: Meghna Stokes MD Signed Date/Time: 03/19/20 8:08 am Transcribed By: DANILO Transcribed Date/Time: 03/19/20 8:06 am Vital Signs Most recent to oldest [Reference Range]: 1 2 3 Oxygen Saturation [94-100 %] 97 % (03/19/20 7:57 AM) 99 % (03/19/20 6:37 AM) 97 % (03/19/20 4:17 AM) Pulse Rate [55-90 bpm] 98 bpm *H* (03/19/20 7:57 AM) 94 bpm *H* (03/19/20 6:37 AM) 99 bpm *H* (03/19/20 4:17 AM) Blood Pressure [90-138/55-84 mm Hg] 106/67mm Hg (03/19/20 7:57 AM) 107/67mm Hg (03/19/20 6:37 AM) 112/65mm Hg (03/19/20 4:17 AM) Respiratory Rate [16-30 br/min] 18 br/min (03/19/20 7:57 AM) 18 br/min (03/19/20 7:25 AM) 18 br/min (03/19/20 7:25 AM) Temperature [96.8-100.4 DegF] 98.1 DegF (03/19/20 4:17 AM) 98.1 DegF (03/19/20 12:52 AM) 99.3 DegF (03/18/20 11:03 PM) Mode of Delivery (Oxygen) Room air (03/19/20 7:57 AM) Room air (03/19/20 6:37 AM) Room air (03/19/20 4:17 AM) Blood pressure sites Arm, right (03/19/20 7:57 AM) Arm, right (03/19/20 6:37 AM) Arm, left (03/19/20 12:52 AM) Temperature Route Oral (03/19/20 4:17 AM) Oral (03/19/20 12:52 AM) Oral (03/18/20 11:03 PM) Social History Social History Type Response Smoking Status Never (less than 100 in lifetime) entered on: 10/19/18 Sex Female
--- OUTSIDE RECORDS SUMMARY | 2022-08-15 13:37 | XMS_ITS | Continuity of Care Document ---
Author Name Unknown Organization [facility] Address [address] [place] [address] [address] [place] [address]- Care Team Providers Care Sales Data Analyst Name Role Phone Tom White MD, Avinash Primary Care Phys ician Encounter [facility] Date(s): 11/20/21 - 01/19/22 [facility] [address] [place] [address]- Attending Physician: Hugo Chambers MD Referring Physician: Avinash Jiménez MD Allergies, [...] 5 units, Intradermal, Once, Aplisol exp Lot [id number] Given R arm, # 1 each, 0 [...] Refills, Maintenance, 03/25/20 13:08:00 EST, Tablet, [id number], Partial fill upon patient request,163.7, cm, 06/13/19 14:47:00 EST, Height, 73.5, kg,... Start Date: 03/25/20 Stop Date: 03/30/20 Status: Ordered Social History Social History Type Response Smoking Status Never (less than 100 in lifetime) entered on: 10/19/18 Sex Female Care Team Personnel Name: Avinash Jiménez MD Address: [address] [place] [id number]
[2022-08-15 14:14] LABS: Influenza A PCR NEGATIVE (Negative); Influenza B PCR NEGATIVE (Negative); Resp Syncy Virus RNA Qual PCR NEGATIVE (Negative); SARS COV2 PCR INHOUSE NEGATIVE (Negative)
== END 2022-08-15 13:33 | disposition home or self-care (01) ==
LOC: HO.ED 13:33
PROVIDERS: Physician Assistant Medical; Emergency Provider Emergency Medicine; PCP Internal Medicine
DX: R09.89 Other specified symptoms and signs involving the circulatory and respiratory systems (principal); Z20.822 Contact with and (suspected) exposure to COVID-19; Z20.828 Contact with and (suspected) exposure to other viral communicable diseases
CPT/HCPCS: 0241U; 99283

== ENCOUNTER 2023-08-25 10:20 | Emergency (ER) | payer MEDICAID, SELFPAY ==
--- NOTE | ~2023-08-25 | XR_ITS ---
EXAMINATION: XR CHEST CLINICAL INFORMATION: Chest pain COMPARISON: None available. TECHNIQUE: Frontal view of the chest was obtained. FINDINGS: Lungs clear. Heart and pulmonary vessels normal. No congestive change. XR/XR chest 1V IMPRESSION: No active disease.
--- NOTE | 2023-08-25 10:22 | ECG_ITS ---
Test Reason : chest pain Blood Pressure : / mmHG Vent. Rate : 081 BPM Atrial Rate : 081 BPM P-R Int : 146 ms QRS Dur : 086 ms QT Int : 374 ms P-R-T Axes : 051 063 043 degrees QTc Int : 434 ms Normal sinus rhythm Normal ECG No previous ECGs available Referred By: Avinash Yoo Electronically Signed By:MINERVA CARRENO
[2023-08-25 10:24] VITALS: BP 113/74; PULSE 85; RESP 16; TEMP 36.6; O2SAT 99; BMI 26.9
[2023-08-25 10:44] LABS: MANUAL DIFF FLAG NO
[2023-08-25 10:47] LABS: Basophils Absolute Auto 0.1 X10*3/uL (0.0-0.2); Basophils Percent Auto 0.9 % (0-2); Eosinophils Absolute Auto 0.1 X10*3/uL (0.0-0.4); Eosinophils Percent Auto 0.8 % (0-4); Hematocrit 38.4 % (37.0-47.0); Hemoglobin 12.5 g/dl (12.0-16.0); Imm Gran Abs Auto 0.01 X10*3/uL (0.00-0.03); Imm Gran Pct Auto 0.2 % (0.0-0.4); Lymphocytes Absolute Auto 1.9 X10*3/uL (1.2-4.9); Lymphocytes Percent Auto 28.4 % (20-40); Mean Corpuscular HGB Conc 32.6 g/dl (31.0-35.0); Mean Corpuscular Hemoglobin 26.9 pg (27.0-33.0); Mean Corpuscular Volume 82.6 fL (80.0-98.0); Mean Platelet Volume 10.7 fL (9.4-12.3); Monocytes Absolute Auto 0.5 X10*3/uL (0.1-1.2); Monocytes Percent Auto 6.8 % (2-11); Neutrophils Absolute Auto 4.2 x10*3/uL (2.0-8.3); Neutrophils Percent Auto 62.9 % (45-73); Platelet Count 362 X10*3/uL (160-400); Red Blood Count 4.65 X10*6/uL (4.20-5.50); Red Cell Distribution Width 15.1 % (11.0-16.0); White Blood Count 6.7 X10*3/uL (4.8-10.8)
--- NOTE | 2023-08-25 11:00 | ED_ITS ---
HPI - Chest Pain General Chief Complaint: Chest Pain Stated Complaint: Chest Pain Time Seen by Provider: 08/25/23 10:40 Source: patient Mode of arrival: ambulatory Limitations: no limitations History of Present Illness HPI narrative: The patient was dealing with a difficult client at work while dealing with the client she developed chest pain complaint: chest pain Onset (ago): minute(s) Timing of current episode: constant (a few minutes) Prior episodes: No Pain location: left chest Pain radiation: left arm and neck Severity: mild Quality: tightness and aching Risk Factors Coronary artery disease risk factors: none Related Data Allergies Allergy/AdvReac Type Severity Reaction Status Date / Time No Known Allergies Allergy Verified 08/25/23 10:25 Review of Systems 2 Review of Systems: Yes all other systems are reviewed and are negative Neurologic: Denies Sensory deficit (Neuro) [facility] Past Medical History Medical History No known health problems Social History Social History Alcohol intake: never Advance Directives: No Physical Exam 2 Vital Signs: Vital Signs: Last Vital Signs Temp 98.4 F 08/25/23 15:35 Pulse 77 08/25/23 15:35 Resp 16 08/25/23 15:35 BP 104/67 08/25/23 15:35 Pulse Ox 98 08/25/23 15:35 O2 Del Method Room Air 08/25/23 15:35 BMI result Body Mass Index 26.9 Const: General: healthy appearing Nutritional Appearance: average body habitus Orientation/consciousness: oriented to person and patient oriented x3 Limitations: no limitations HEENT: Head: Yes normal to inspection Ears: external ears normal General nose exam: Normal external nose present Mouth: Normal oral and palatal mucosa present and oropharynx normal Throat: Yes posterior oropharynx normal Eyes: General: appearance normal, both eyes and all related structures Neck: Other: supple Neck: Yes normal visual inspection Chest: Chest palpation & inspection: normal inspection of the chest Resp: Auscultation: clear to auscultation bilaterally Cardio: Jugular venous distension: no JVD Rate: regular rate Rhythm: r egular rhythm Heart sounds: S1 normal heart sound present and S2 normal heart sound present GI: Inspection: Yes normal to inspection Palpation (GI): Soft to palpation, nontender and No hepatosplenomegaly present Auscultation: normal bowel sounds : General: Yes no CVA tenderness Back/Spine/Pelvis: Back: no CVA tenderness Skin: General skin exam: no rashes or lesions noted Neuro: General: oriented to person and patient oriented x3 Cranial nerves: Yes CN's II-XII intact bilaterally Motor exam (neuro): 5/5 motor strength present throughout Sensory Exam: No Sensory deficit (Neuro) Extrem: General: Yes normal to inspection Psych: Appearance: grossly normal Course Reevaluation(s) Reevaluation #1: EKG, labs, troponin and CXR all normal will dc home with follow up [facility] pmd Time: 15:39 Medical Decision Making Differential Diagnosis Differential Diagnoses: The differential diagnosis associated with the presentation includes (cardiac ischemia, pneumonia, PE, anxiety were all considered) Admission/Observation Consideration of admission/observation: Escalation of care including admission/observation considered (upon arrival patient was considered for admission) Lab Data 08/25/23 10:38 08/25/23 10:38 Labs: Lab Results 08/25/23 08/25/23 Range/Units 10:38 14:47 WBC 6.7 (4.8-10.8) X10*3/uL RBC 4.65 (4.20-5.50) X10*6/uL Hgb 12.5 (12.0-16.0) g/dl Hct 38.4 (37.0-47.0) % MCV 82.6 (80.0-98.0) fL MCH 26.9 L (27.0-33.0) pg MCHC 32.6 (31.0-35.0) g/dl RDW 15.1 (11.0-16.0) % Plt Count 362 (160-400) X10*3/uL MPV 10.7 (9.4-12.3) fL Immature Gran % (Auto) 0.2 (0.0-0.4) % Neut % (Auto) 62.9 (45-73) % Lymph % (Auto) 28.4 (20-40) % [place] % (Auto) 6.8 (2-11) % Eos % (Auto) 0.8 (0-4) % Baso % (Auto) 0.9 (0-2) % Lymph # (Auto) 1.9 (1.2-4.9) X10*3/uL [place] # (Auto) 0.5 (0.1-1.2) X10*3/uL Eos # (Auto) 0.1 (0.0-0.4) X10*3/uL Baso # (Auto) 0.1 (0.0-0.2) X10*3/uL Abs Immat Gran (auto) 0.01 (0.00-0.03) X10*3/uL Absolute Neuts (auto) 4.2 (2.0-8.3) x10*3/uL Absolute Nucleated RBC 0.000 (0.0-0.012) X10*3/uL Nucleated RBC % (auto) 0.0 (0.0-0.2) /100WBC Sodium 138 (135-145) mmol/L Potassium 4.0 (3.3-5.1) mmol/L Chloride 105 (96-108) mmol/L Carbon Dioxide 27 (22-29) mmol/L Anion Gap 10 L (12-20) BUN 12 (9-16) mg/dL Creatinine 0.71 (0.5-1.4) mg/dL Estim Creat Clear Calc 104.0 Estimated GFR > 60 Random Glucose 92 (60-115) mg/dL Calcium 9.2 (8.4-10.2) mg/dL AST 20 (5-31) U/L ALT 28 (0-31) U/L Troponin I High Sens < 2.7 < 2.7 (<3.5-17.0) ng/L Lipase 30 (8-78) U/L Influenza Type A (PCR) NEGATIVE (Negative) Influenza Type B (PCR) NEGATIVE (Negative) RSV RNA Qual (PCR) NEGATIVE (Negative) SARS-CoV-2 RNA (RT-PCR) NEGATIVE (Negative) Independent Interpretation I performed an independent interpretation of an: EKG (sinus 80, no st or twave changes) and Plain X-Ray (CXR: no infiltrate) Tests considered The following testing was considered but not selected: CT of chest considered but patient with no risk factors for PE Prescription Management I considered prescription management with: Antibiotic (no evidence of pneumonia on xray) Discharge Plan Discharge Clinical Impression: Chest pain Patient Disposition: Home, Self-Care Instructions: Chest Pain (ED) Referrals: Santos White,Avinash, MD [Primary Care Provider] - 5 days (call for follow up) Print Language: Tajik
[2023-08-25 11:07] LABS: Anion Gap 10 (12-20); Blood Urea Nitrogen 12 mg/dL (9-16); Calcium 9.2 mg/dL (8.4-10.2); Carbon Dioxide 27 mmol/L (22-29); Chloride 105 mmol/L (96-108); Estimated Glomerular Filt Rate > 60; Glucose Random 92 mg/dL (60-115); Sodium 138 mmol/L (135-145)
[2023-08-25 11:18] LABS: Troponin-I High Sensitivity < 2.7 ng/L (<3.5-17.0)
[2023-08-25 11:35] LABS: Influenza A PCR NEGATIVE (Negative); Influenza B PCR NEGATIVE (Negative); Resp Syncy Virus RNA Qual PCR NEGATIVE (Negative); SARS COV2 PCR INHOUSE NEGATIVE (Negative)
[2023-08-25 11:42] LABS: Alanine Aminotransferase 28 U/L (0-31); Aspartate Amino Transferase 20 U/L (5-31); Lipase 30 U/L (8-78)
[2023-08-25 15:20] LABS: Troponin-I High Sensitivity < 2.7 ng/L (<3.5-17.0)
[2023-08-25 15:35] VITALS: BP 104/67; PULSE 77; RESP 16; TEMP 36.9; O2SAT 98
--- NOTE | 2023-08-25 15:38 | MHC.EDTECH ---
THIS PCT ASSUMED CARE OF PATIENT AT 1500 ,VITALS TAKEN AND PATIENT WAS HOOKED UP TO [facility] ,CALL [facility] WITHIN PATIENT REACH .
[2023-08-25 15:50] LABS: Appearance Urine Cloudy; Color Urine Yellow; Glucose Urine UA Negative (Negative); Leukocyte Esterase Urine Trace (Negative); Nitrite Urine Positive (Negative); PH 8.5 (5.0-9.0); Specific Gravity - Urine 1.025 (1.005-1.025); UMIC TRIGGER UACC YES; Urine Blood Moderate (2+) (Negative); Urine Ketones Negative (Negative); Urine Protein Trace mg/dL (Neg-Trace)
[2023-08-25 15:55] LABS: Bacteria Urine 4+ (None Seen); Hyaline Casts Urine 0-2 /LPF (0-2); UACC Culture Trigger YES; WBC Urine 21-50 /HPF (0-5)
[2023-08-25 16:14] VITALS: BP 104/67; PULSE 77; RESP 16; TEMP 36.9; O2SAT 98
== END 2023-08-25 16:16 | disposition home or self-care (01) ==
PROVIDERS: Emergency Provider Emergency Medicine; PCP Internal Medicine
DX: R07.9 Chest pain, unspecified (principal); R82.90 Unspecified abnormal findings in urine
CPT/HCPCS: 0241U; 36415; 71045; 80048; 81001; 83690; 84450; 84460; 84484; 85025; 87086; 87088; 87186; 93005; 99283; 99284

== ENCOUNTER → 2023-08-25 10:22 | Outpatient (BNV) | payer MEDICAID, SELFPAY | PROVIDERS: Emergency Provider Emergency Medicine; PCP Internal Medicine; Visit Provider Internal Medicine | DX: R07.9 Chest pain, unspecified (principal) | CPT/HCPCS: 93010 ==

== ENCOUNTER 2024-08-09 08:16 | Outpatient (REF) | payer MEDICAID, SELFPAY ==
--- NOTE | ~2024-08-09 | US_ITS ---
EXAMINATION: US ABDOMEN LIMITED HISTORY: gallbladder polyps TECHNIQUE: Real-time grayscale ultrasound imaging of the right upper quadrant was performed and images were reviewed. COMPARISON: Comparison is made with the prior examination dated 12/11/2020. FINDINGS: Liver: The right lobe of the liver measures 20.0 cm in size. The left lobe of the liver measures 10.6 cm in size. The liver demonstrates increased echotexture, consistent with steatosis. No focal mass or intrahepatic biliary ductal dilatation is identified. There is normal hepatopedal flow in the portal vein. Gallbladder and biliary tree: There is an 8 x 6 x 6 mm gallbladder polyp. Previously this measured 4 x 3 x 4 mm. The gallbladder is otherwise unremarkable, without evidence of calculi, wall thickening, or pericholecystic fluid. There is no sonographic Corea sign. The common bile duct is normal in caliber measuring 5 mm. Right Kidney: The right kidney measures 11.5 cm in length. The right kidney is unremarkable, without evidence of masses, hydronephrosis, or calculi. Pancreas: The pancreatic head, neck, and body are unremarkable. The pancreatic tail is obscured by bowel gas. Abdominal aorta and inferior vena cava: The visualized portions of the abdominal aorta and inferior vena cava are normal in caliber. There is no free fluid in the right upper quadrant. US/US abdomen limited IMPRESSION: 1. Hepatomegaly and hepatic steatosis. 2. Enlargement of the previously seen gallbladder polyp. Continued follow-up is recommended. Electronically signed by: Jayme Valle MD 08/09/2024 09:12 AM EDT
--- OUTSIDE RECORDS SUMMARY | 2024-08-09 08:29 | XMS_ITS | Encounter Summary ---
Author Organization [employer] Address [address] [facility] 7 [place] [address] Care Team Providers Care Toll Gate Keeper Name Role Phone Avinash Jiménez MD Primary Care Prov ider Reason for Visit * Reason Onset Date Comments FYI 07/14/2023 Encounter Details Date Type Department Care Team (Late st Contact Info) Description 07/14/2023 Telephone [facility] MEDICINE [address] [place] [address] Avinash Jiménez MD [address] [place] [address] FYI Social History Tobacco Use Types Packs/Day Years Used Date Smoking Tobacco: Never Smokeless Tobacco: Never Alcohol Use Standard Drinks/Week Comments Never 0 (1 standard drink = 0.6 oz pur e alcohol) Depression Answer Date Recorded Patient Health Questionnaire-9 Score 2 12/31/2022 Housing Stability Answer Date Recorded What is your housing situation today? I have radhatrevon cosme 03/13/[address] you li ve. Do you have problems with any of the following? None of the above 03/13/2023 Food Insecurity Answer Date Recorded Within the past 12 months, y ou worried that your food would run out before you got money to buy more: Never True 03/13/2023 Within the past 12 months,th e food you bought just didn't last and you didn't have enough money to get more: Never True 07/2022 Transportation Answer Date Recorded In the past 12 months, has l ack of transportation kept you from medical appts, meetings, work or from getting things needed for daily living? No 03/13/2023 Utilities Answer Date Recorded In the past 12 months, has t he electric, gas, oil or water company threatened to shut off services in your home? No 03/13/2023 Depression Answer Date Recorded Patient Health Questionnaire-2 Score 2 12/31/2022 Comments Unknown Sex and Gender Information Value Date Recorded Sex Assigned at Female 03/10/2022 10:24 AM EDT Legal Sex Female 10:24 AM EDT Gender Identity Female 03/10/2022 10:24 AM EDT Sexual Orientation Straight 03/10/2022 10 :24 AM EDT documented as of this encounter Miscellaneous Notes * Telephone Encounter - Wing Wander RN - 07/14/2023 11:45 AM EST Please advised in regards to message below. * Telephone Encounter - Florence Torrez RN - 07/14/2023 11:44 AM EST Incoming message: Tc from [facility] calling to inform the provider that he has attempted several timesto call and schedule the patient for a appointment and has been unsuccessful. Called pt. She states that she was out of town. And [facility] radiology only called her one time to schedule her appt. Pt will call [facility] radiology this afternoon to set up appt. Pt also requesting medication for yeast infection. She states that she got checked by [facility] and everything came back Negative but positive Yeast infection. Pt was put on yeast medication and infection cleared up but, now is getting Same sx. Again and would like a refill on medication. Itchy vaginal area with white discharge. Protocol Used: Vaginal Symptoms (Adult) Protocol-Based Disposition: See in Office or Video Visit Today or Tomorrow Positive Triage Questions: * Moderate-Severe itching (i.e., interferes with school, work, or sleep) * Symptoms of a yeast infection (i.e., itchy, white discharge, not bad smelling) and not improved > 3 days following Care Advice * All higher-acuity triage questions were negative Care Advice Discussed: * Reassurance and Education - Vaginal Yeast Infection * Antifungal Medicine for Yeast Infection * Antifungal Medicine for Yeast Infection - Extra Notes and Warnings * Genital Hygiene * Telephone Encounter - Tahir Flores - 07/14/2023 11:31 AM EST Tc from [facility] Radiology calling to inform the provider that he has attempted several timesto call and schedule the patient for a appointment and has been unsuccessful documented in this encounter Plan of Treatment Upcoming Encounters Date Type Department Care Team (Late st Contact Info) Description 08/11/2024 10:00 AM EDT Office Visit [facility] ADULT DENTAL [address] [place], [place] [phone] Shilpa Da Silva DDS [address] [place] [address] documented as of this encounter Visit Diagnoses Not on filedocumented in this encounter Additional Health Concerns Assessment Noted Time PHQ-9 Depression Total Score: 2 01/01/20 23 3:30 PM EDT documented as of this encounter Care Teams Toll Gate Keeper Relationship Specialty Start Date End Date Avinash Jiménez MD [address] [place] [address] PCP - General Internal Medicine 10/04/19 documented as of this encounter
--- OUTSIDE RECORDS SUMMARY | 2024-08-09 08:29 | XMS_ITS | Encounter Summary ---
Author Organization [employer] Address [address] [facility] 7 [place] [address] Care Team Providers Care Informatics Consultant Name Role Phone Avinash Jiménez MD Primary Care Prov ider Reason for Visit * Reason Onset Date Comments Appointment Request 07/10/2022 Encounter Details Date Type Department Care Team ([facility] st Contact Info) Description 07/10/2022 Telephone [facility] CHC MED & PEDS [address] [place], [place] [phone] Avinash Jiménez MD [address] [place], [place] [phone] Appointment Request Social History Tobacco Use Types Packs/Day Years Used Date Smoking Tobacco: Never Smokeless Tobacco: Never Alcohol Use Standard Drinks/Week Comments Never 0 (1 standard drink = 0.6 oz pur e alcohol) Comments Unknown Sex and Gender Information Value Date Recorded Sex Assigned at Female 03/10/2022 10:24 AM EDT Legal Sex Female 10:24 AM EDT Gender Identity Female 03/10/2022 10:24 AM EDT Sexual Orientation Straight 03/10/2022 10 :24 AM EDT documented as of this encounter Miscellaneous Notes * Telephone Encounter - Barb Kang - 07/10/2022 9:16 AM EST Tc from pt returning phone call regarding pre-op appt that needs to be schedule. Please contact pt art [phone] Nigerien Speaker documented in this encounter Plan of Treatment Upcoming Encounters Date Type Department Care Team (Late st Contact Info) Description 08/11/2024 10:00 AM EDT Office Visit [facility] ADULT DENTAL [address] [place] [address] Shilpa Da Silva, DDS [address] [place] [address] documented as of this encounter Visit Diagnoses Not on filedocumented in this encounter Care Teams Informatics Consultant Relationship Specialty Start Date End Date Avinash Jiménez MD [address] [place] [address] PCP - General Internal Medicine 10/04/19 documented as of this encounter
--- OUTSIDE RECORDS SUMMARY | 2024-08-09 08:29 | XMS_ITS | Clinical Summary ---
Author Organization [employer] Address [address] [facility] 7t [place] [address] Care Team Providers Care Firer Diesel Locomotive Name Role Phone Avinash Jiménez MD Primary Care Prov ider Allergies Active Allergy Reactions Criticality Noted Date Comments Shrimp Flavor Agent (Non-Screening) 04/15/2022 Has shrimp. No Allergy to shrimp. Medications sertraline (Zoloft) 50 MG tablet Take 50 mg by mouth in the morning. 3 Active econazole nitrate 1 % cream 7 Active omeprazole (PriLOSEC) [address] capsuleIndicatio ns:Gastroesophag eal reflux disease without esophagitis Take 1 capsule (20 mg) by mouth before breakfast. Do not crush or chew. 90 capsule 3 4 04/21/20 25 Active meclizine (Antivert) 25 MG tablet Take 1 tablet (25 mg) by mouth Once per day. Take one pill daily as needed for dizziness 30 tablet 4 Active Multiple Vitamin (Multi-Vitamin) tabletIndication s:Gastroesophage al reflux disease without esophagitis Take 1 tablet by mouth Once per day. 90 tablet 2 4 Active Active Problems Problem Noted Date Diagnosed Date Encounter for screening mamm ogram for malignant neoplasm of breast 04/21/2024 Vitamin D deficiency 06/23/2023 Gastroesophageal reflux disease without esophagi tis 06/23/2023 Vaginal yeast infection 06/23/2023 Assessment & Plan (06/23/2023 3:32 PM EST): Will order fluconazole Thyromegaly 12/31/2022 Assessment & Plan (06/18/2023 3:55 PM EST): Patient with fam hx of thyroid cancer, labs and ultrasound not done, will resend Assessment & Plan (12/31/2022 8:55 PM EDT): Patient refers feeling her thyroid is enlarged, will order tsh/with TPO and thyroid ultrasound, her sister was recently diagnosed with papillary thyroid cancer Anxiety disorder 07/24/2022 Constipation 07/24/2022 IBS (irritable bowel syndrome) 07/24/2022 Rectal itching 06/13/2022 Assessment & Plan (06/13/2022 7:35 PM EST): Patient has tried hemorroidal ointment without relief, will provide desitin and will refer to gastroenterology Herpes labialis 05/29/2022 Chronic bilateral low back pain with bilateral s ciatica 04/15/2022 Assessment & Plan (04/15/2022 9:10 AM EST): Patient has completed about 8 sessions of PT without improvement in pain, will order lumbar MRI and will refer to ortho, she denied saddle anesthesia, no urine/stool incontinence/retention Gallbladder polyp 04/15/2022 Assessment & Plan (05/29/2024 3:02 PM EST): Will order new ultrasound to evaluate size and morphology Assessment & Plan (06/23/2023 3:25 PM EST): Will order a follow up gallbladder ultrasound, she remains asymptomatic Assessment & Plan (04/15/2022 9:09 AM EST): Will order new liver ultrasound to evaluate gallbladder, patient remains asymptomatic Hirsutism 05/28/2018 Encounters Date Type Department Care Team Description 07/22/2024 Population Health Risk Score [facility] (C[facility]) Department [address] [place] [address] Provider, Population Health Generic 06/24/2024 Orders Only [facility] MED & PEDS [address] [place] [address] Avinash Jiménez MD Gallbladder polyp (Primary Dx) 06/08/2024 Telephone [facility] MED & PEDS [address] [place], [place] [phone] Avinash Jiménez MD Nurse Triage 06/01/2024 Telephone [facility] [address] [place], [place] [phone] Avinash Jiménez MD US GALLBLADDER ORDER from Last 3 Months Family History Medical History Relation Name Comments No Known Problems Father Coronary artery disease Maternal Grandmother Diabetes Maternal Grandmother Hypertension Mother Thyroid cancer Mother's Sister Relation Name Status Comments Father Maternal Grandmother Mother Mother's Sister Social History Tobacco Use Types Packs/Day Years Used Date Smoking Tobacco: Never Smokeless Tobacco: Never Tobacco Cessation:Counseling Given: Not Answered Alcohol Use Standard Drinks/Week Comments Never 0 (1 standard drink = 0.6 oz pur e alcohol) Depression Answer Date Recorded Patient Health Questionnaire-9 Score 2 12/31/2022 Housing Stability Answer Date Recorded What is your housing situation today? I have radha cosme 03/13/[address] you [...] Orientation Straight 03/10/2022 10 :24 AM EDT Last Filed Vital Signs Vital Sign Reading Time Taken Comments Blood Pressure 108/64 05/03/2024 11:01 AM EST Pulse 65 05/03/2024 11:01 AM EST Temperature 36.6 ??C (97.9 ??F) 04/21/2024 2:03 PM ES T Respiratory Rate 20 04/21/2024 2:03 PM EST Oxygen Saturation - - Inhaled Oxygen Concentration - - Weight 74.4 kg (164 lb) 04/21/2024 2:03 PM EST Height 162.6 cm (5' 4 ) 04/21/2024 2:03 PM EST Body Mass Index 28.15 04/21/2024 2:03 PM EST Plan of Treatment Upcoming Encounters Date Type Department Care Team (Late st Contact Info) Description 08/11/2024 10:00 AM EDT Office Visit [facility] ADULT DENTAL [address] [place] [address] Shilpa Da Silva, DDS [address] [place] [address] Health Maintenance Due Date Last Done Comments Alcohol/Substance Use Screening 1996 Family Planning (PISQ) 09/15/1999 Hepatitis C Screening 2002 DTaP/Tdap/Td Vaccines (2 - Td or Tdap) 12/14/2021 12/15/2011 Dental Oral Exam 06/20/2023 12/17/2022, 08/2021, 07/23/2020, Additional history exists Depression Screening 01/01/2024 12/31/2022, 01/01/20 23 SDOH Screening 01/01/2024 12/31/2022 COVID-19 Vaccine ( season) 2024 05/07/2021, 07/09/2020, 06/18/2020 Influenza Vaccine (#1) 2024 , 03/03/2016, 02/05/2015, Additional history exists Dental Prophylaxis 11/02/2024 05/03/2024, 0 12/17/2022, 05/14/2021, Additional history exists Tobacco Screening 05/03/2025 05/03/2024 Dental X-Ray: Bitewings 05/04/2025 05/03/20 24, 12/17/2022, 07/23/2020, Additional history exists Cervical Cancer Screening 12/16/2026 HPV/Cotest 12/16/2026 12/16/2021, 09/17/2015 Pap Smear 12/16/2026 12/16/2021 Dental X-Ray: Full Mouth 05/04/2027 024, 07/23/2020, 03/30/2018, Additional history exists Zoster Vaccines (1 of 2) 2034 RSV Patients and Patients Aged 60 years or older (1 - 1-dose 75+ series) 09/15/2059 HPV Vaccines Completed 03/17/2011, 11/2010, 12/19/2009 Hepatitis B Vaccines Completed 09/19/2015, 02/05/2015, 01/05/2015 HIV Screening Completed 07/24/2022 HIB Vaccines Aged Out No longer eligi ble based on patient's age to complete this topic Hepatitis A Vaccines Aged Out No long er eligible based on patient's age to complete this topic IPV Vaccines Aged Out No longer eligi ble based on patient's age to complete this topic Meningococcal Vaccine Aged Out No samreen kris eligible based on patient's age to complete this topic Pneumococcal Vaccine: Pediatrics (0 to 5 Years) and At-Risk Patients (6 to 49) Years) Aged Out No longer eligible based on patient's age to complete this topic RSV under 20 months Aged Out No longe r eligible based on patient's age to complete this topic Rotavirus Vaccines Aged Out No longer eligible based on patient's age to complete this topic Procedures Procedure Name Priority Date/Time Associated Diagnosis Comments PROPHYLAXIS - ADULT Routine 05/03/2024 1 1:00 AM EST INTRAORAL - COMPLETE SERIES OF RADIOGRAPHIC IMAGES Routine 05/03/2024 11:00 AM EST PERIODIC ORAL EVALUATION - ESTABLISHED PATIENT Routine 12/17/2022 3:00 PM EDT HIV 1/2 ANTIGEN/ANTIBODY, FOURTH GENERATION W/RFL Routine 07/24/2022 10:23 AM EDT Pre-op evaluation HM PAP/HPV Routine 12/16/2021 from Last 3 Months or Most Recently Relevant to Health Maintenance Results * HIV-1/2 Antigen and Antibodies, Fourth Generation, with Reflexes (07/24/2022 10:23 AM EDT) HIV Antigen/Antibody, 4th Generation NON-REAC TIVE NON-REAC TIVE [facility] Comment: HIV-1 antigen and HIV-1/HIV-2 antibodies were not detected. There is no laboratory evidence of HIV infection. PLEASE NOTE: This information has been disclosed to you from records whose confidentiality may be protected by state law. ??If your state requires such protection, then the state law prohibits you from making any further disclosure of the information without the specific written consent of the person to whom it pertains, or as otherwise permitted by law. A general authorization for the release of medical or other information is NOT sufficient for this purpose. ?? For additional information please refer to http://education.[employer]/faq/RBK067 (This link is being provided for informational/ educational purposes only.) The performance of this assay has not been clinically validated in patients less than 2 years old. Blood Venous blood specimen / Unknown 07/24/2022 10:23 AM EDT 07/24/2022 10:23 AM EDT Jaylene Gaona MD LAB BLOOD ORDERABLES Final Result [facility] [address], [place] [address] [facility] [facility] [address] [place] [address] * Hm Pap Smear (12/16/2021) Pap Negative for intraephithelial lesion or malignancy Negative for intraephithelial lesion or malignancy, Other HPV Undetected Undetected, Indeterminate, Quantitative, Not Detected Historical Provider HEALTH MAINTENANCE Final Result from Last 3 Months or Most Recently Relevant to Health Maintenance Insurance [facility] C3 DENTAL-[facility] MEDICAID STAND ADULT Care Teams Firer Diesel Locomotive Relationship Specialty Start Date End Date Avinash Jiménez MD [address] [place] [address] PCP - General Internal Medicine 10/04/19
--- OUTSIDE RECORDS SUMMARY | 2024-08-09 08:29 | XMS_ITS | Encounter Summary ---
Author Organization [employer] Address [address] [place] [address] [address] [place] [address] Care Team Providers Care Deckhand Maintenance Name Role Phone Avinash Jiménez MD Primary Care Prov ider Encounter Details Date Type Department Care Team (Latest Contact Info) Description 05/09/2019 Abstract [facility] CONVERSIONS Dental, Provider, DDS Social History Tobacco Use Types Packs/Day Years Used Date Smoking Tobacco: Never Assessed Comments Unknown Sex and Gender Information Value Date Recorded Sex Assigned at Female 03/10/2022 10:24 AM EDT Legal Sex Female 10:24 AM EDT Gender Identity Female 03/10/2022 10:24 AM EDT Sexual Orientation Straight 03/10/2022 10 :24 AM EDT documented as of this encounter Plan of Treatment Upcoming Encounters Date Type Department Care Team (Late st Contact Info) Description 08/11/2024 10:00 AM EDT Office Visit [facility] CHC ADULT DENTAL [address] [place] [address] Shilpa Da Silva, DDS [address] [place] [address] documented as of this encounter Visit Diagnoses Not on filedocumented in this encounter Care Teams Deckhand Maintenance Relationship Specialty Start Date End Date Avinash Jiménez MD [address] [place] [address] PCP - General Internal Medicine 10/04/19 documented as of this encounter
--- OUTSIDE RECORDS SUMMARY | 2024-08-09 08:29 | XMS_ITS | Encounter Summary ---
Author Organization [employer] Address 75 [facility] 7 [place] [address] Care Team Providers Care Catering Driver Name Role Phone Avinash Jiménez MD Primary Care Prov ider Reason for Referral * Imaging (Routine) - Closed Specialty Diagnoses / Procedures Referred By Contac t Referred To Contact Diagnoses Gallbladder polyp Procedures US Gallbladder Avinash Jiménez MD [address] [place] [address] Phone: tel: fax: [facility] [address] [place] [address] Phone: tel: fax: Referral ID Status Reason Start Date Expiration Date Visits Re quested Visits Authorized [id number] Closed 05/16/2022 11/12/2022 1 1 Encounter Details Date Type Department Care Team (Late st Contact Info) Description 05/16/2022 Orders Only [facility] MEDICINE [address] [place], [place] [phone] Avinash Jiménez MD [address] [place], [place] [phone] Chronic bilateral low back pain with bilateral sciatica (Primary Dx); Gallbladder polyp Social History Tobacco Use Types Packs/Day Years [...] Description 08/11/2024 10:00 AM EDT Office Visit [facility] ADULT DENTAL [address] [place] [address] Shilpa Da Silva DDS [address] [place] [address] Scheduled Orders Name Type Priority Associated Diagnoses Orde r Schedule US Gallbladder Imaging Routine Gallbladder polyp Expected: 11/13/2022, Expires: 05/16/2023 documented as of this encounter Visit Diagnoses Diagnosis Chronic bilateral low back pain with bilateral sciatica- Primary Gallbladder polyp Cholesterolosis of gallbladder documented in this encounter Care Teams Catering Driver Relationship Specialty Start Date End Date Avinash Jiménez MD [address] [place] [address] PCP - General Internal Medicine 10/04/19 documented as of this encounter
--- OUTSIDE RECORDS SUMMARY | 2024-08-09 08:29 | XMS_ITS | Encounter Summary ---
Author Organization [employer] Address [address] [facility] 7 [place] [address] Care Team Providers Care Band Singer Name Role Phone Avinash Jiménez MD Primary Care Prov ider Reason for Visit * Reason Onset Date Comments Appointment Request 09/28/2023 Encounter Details Date Type Department Care Team (Late st Contact Info) Description 09/28/2023 Telephone [facility] MEDICINE [address] [place] [address] Avinash Jiménez MD [address] [place] [address] Appointment Request Social History Tobacco Use Types [...] Telephone Encounter - Wing Wander RN - 09/28/2023 2:08 PM EDT Tc to pt regarding appt request. Unable to reach pt, left message for pt to call back. * Telephone Encounter - Tahir Flores - 09/28/2023 9:37 AM EDT Tc from patient requesting a appt to discuss results of US Gallbladder and would like a referral for Derm as well for skin tags documented in this encounter Plan of Treatment Upcoming Encounters Date Type Department Care Team (Late st Contact Info) Description 08/11/2024 10:00 AM EDT Office Visit [facility] ADULT DENTAL [address] [place] [address] Shilpa Da Silva DDS [address] [place] [address] documented as of this encounter Visit Diagnoses Not on filedocumented in this encounter Additional Health Concerns Assessment Noted Time PHQ-9 Depression Total Score: 2 01/01/20 23 3:30 PM EDT documented as of this encounter Care Teams Band Singer Relationship Specialty Start Date End Date Avinash Jiménez MD [address] [place] [address] PCP - General Internal Medicine 10/04/19 documented as of this encounter
--- OUTSIDE RECORDS SUMMARY | 2024-08-09 08:29 | XMS_ITS | Encounter Summary ---
Author Organization [employer] Address [address] [facility] 7 [place] [address] Care Team Providers Care Oven Stripper Name Role Phone Avinash Jiménez MD Primary Care Prov ider Encounter Details Date Type Department Care Team (Late st Contact Info) Description 10/02/2023 Orders Only [facility] CHC MED & PEDS [address] [place], [place] [phone] Jaylene Gaona MD [address] [place] [address] Social History Tobacco Use Types Packs/Day Years [...] Description 08/11/2024 10:00 AM EDT Office Visit [facility] ADULT DENTAL [address] [place] [address] Shilpa Da Silva, DDS [address] [place], [place] [phone] documented as of this encounter Visit Diagnoses Not on filedocumented in this encounter Additional Health Concerns Assessment Noted Time PHQ-9 Depression Total Score: 2 01/01/20 23 3:30 PM EDT documented as of this encounter Care Teams Oven Stripper Relationship Specialty Start Date End Date Avinash Jiménez MD [address] [place] [address] PCP - General Internal Medicine 10/04/19 documented as of this encounter
--- OUTSIDE RECORDS SUMMARY | 2024-08-09 08:29 | XMS_ITS | Encounter Summary ---
Author Organization [employer] Address [address] [facility] 7 [place] [address] Care Team Providers Care Preparation Plant Supervisor Name Role Phone Avinash Jiménez MD Primary Care Prov ider Reason for Visit * Reason Onset Date Comments Nurse Triage 01/15/2024 Encounter Details Date Type Department Care Team (Late st Contact Info) Description 01/15/2024 Telephone [facility] MEDICINE [address] [place] [address] Avinash Jiménez MD [address] [place] [address] Nurse Triage Social History Tobacco Use Types Packs/Day Years [...] encounter Miscellaneous Notes * Telephone Encounter - Florence Torrez RN - 01/15/2024 9:50 AM EDT Called pt. She states that she has itchiness and redness in vaginal area. Pt states that she got and has been having more intercourse. Pt. States that she gets Yeast infections. Itchy vaginalarea and some redness. No other sx. Advised yogurt daily with probiotic cultures Protocol Used: Vulvar Symptoms (Adult) Protocol-Based Disposition: See in Office or Video Visit Today or Tomorrow Positive Triage Questions: * Moderate-Severe itching (i.e., interferes with school, work, or sleep) * Vulvar itching and not improved > 3 days following Care Advice * Symptoms of a yeast infection (i.e., itchy, white discharge, not bad smelling) and not improved> 3 days following Care Advice * Symptoms of a yeast infection (i.e., itchy, white discharge, not bad smelling), which feels like prior vaginal yeast infections * All higher-acuity triage questions were negative Care Advice Discussed: * Reassurance and Education - Vulvar Itching * Clean the Area * Genital Hygiene * Telephone Encounter - Barb Guerrero Pearl - 01/15/2024 8:44 AM EDT Symptom: Vaginal Symptoms - Not Bleeding Outcome: Schedule an appointment to be seen within 24 hours Reason: Caller denied all higher acuity questions The caller accepted this outcome Pt informs get yeast infections, requesting One time med. documented in this encounter Plan of Treatment Upcoming Encounters Date Type Department Care Team (Late st Contact Info) Description 08/11/2024 10:00 AM EDT Office Visit [facility] ADULT DENTAL [address] [place], [place] [phone] Shilpa Da Silva DDS [address] [place], [place] [phone] documented as of this encounter Visit Diagnoses Not on filedocumented in this encounter Additional Health Concerns Assessment Noted Time PHQ-9 Depression Total Score: 2 01/01/20 23 3:30 PM EDT documented as of this encounter Care Teams Preparation Plant Supervisor Relationship Specialty Start Date End Date Avinash Jiménez MD [address] [place], [place] [phone] PCP - General Internal Medicine 10/04/19 documented as of this encounter
--- OUTSIDE RECORDS SUMMARY | 2024-08-09 08:29 | XMS_ITS | Clinical Summary ---
Author Organization [facility] Address [address] [place] [address] Phone Care Team Providers Care Air Vice Marshal Name Role Phone Avinash Jiménez Primary Care Provide r Encounters Date Type Department Care Team Description 05/21/2024 10:00 AM EST - 05/21/2024 11:59 PM EST Hospital Encounter [facility] at [address] [address] Encounter for screening mammogram for malignant neoplasm of breast Discharge Disposition: Home or Self Care from Last 3 Months Surgical History Surgery Date Site/Laterality Comments BREAST ENHANCEMENT SURGERY W IMPLANT Medical History Medical History Date Comments Depressive disorder DX:Depressiv e disorder Anxiety state DX:Anxiety state Family History Medical History Relation Name Comments Breast cancer Mother Hypertension Mother Breast cancer Paternal Grandmother Relation Name Status Comments Father Mother Alive Paternal Grandmother Alive Social History Tobacco Use Types Packs/Day Years Used Date Smoking Tobacco: Never Smokeless Tobacco: Never Alcohol Use Standard Drinks/Week Comments No 0 (1 standard drink = 0.6 oz pur e alcohol) Comments No Sex and Gender Information Value Date Recorded Sex Assigned at Not on file Legal Sex Female 5:06 AM EST Gender Identity Not on file Sexual Orientation Not on file Obstetrics History Para Term AB IAB SAB Ectopic Multiple Livin g Live Births 2 Last Filed Vital Signs Vital Sign Reading Time Taken Comments Blood Pressure 120/79 09/19/2022 10:15 AM EDT Pulse 96 09/19/2022 10:15 AM EDT Temperature - - Respiratory Rate - - Oxygen Saturation - - Inhaled Oxygen Concentration - - Weight 76.2 kg (168 lb) 05/21/2024 10:30 AM EST Height 165.1 cm (5' 5 ) 05/21/2024 10:30 AM EST Body Mass Index 27.96 05/21/2024 10:30 AM EST Plan of Treatment Health Maintenance Due Date Last Done Comments Cervical Cancer Screening: Pap Smear 2005 DTaP,Tdap,and Td Vaccines (2 - Td or Tdap) 12/14/2021 12/15/2011 Hepatitis C Screening 04/13/2022 Social Influencers of Health Screening 04/13/2022 Depression Screening 01/01/2024 12/31/2022 COVID-19 Vaccine ( season) 2024 05/07/2021, 07/09/2020, 06/18/2020 Influenza Vaccine (#1) 2024 , 03/03/2016, 02/05/2015, Additional history exists HPV Vaccines Completed 03/17/2011, 11/2010, 12/19/2009 Hepatitis [...] on patient's age to complete this topic MMR Vaccines Aged Out No longer eligi ble based on patient's age to complete this topic Meningococcal ACWY Vaccine Aged Out N o longer eligible based on patient's age to complete this topic Meningococcal B Vacine Aged Out No lo nger eligible based on patient's age to complete this topic Pneumococcal Vaccine: Pediatrics (0 to 5 Years) and At-Risk Patients (6 to 64 Years) Aged Out No longer eligible based on patient's age to complete this topic RSV Immunization Patients Under 20 months Aged Out No longer eligible based on patient's age to complete this topic Varicella Vaccines Aged Out No longer eligible based on patient's age to complete this topic Procedures Procedure Name Priority Date/Time Associated Diagnosis Comments MG MAMMO DIGITAL SCREENING W NINO BILAT Routine 05/21/2024 10:55 AM EST Encounter for screening mammogram for malignant neoplasm of breast from Last 3 Months Results * MG Mammo Digital Screening w Nino bilat (05/21/2024 10:55 AM EST) Anatomical Region Laterality Modality Breast Bilateral Mammography 05/24/2024 5:28 PM EST Impressions 05/24/2024 5:38 PM EST No mammographic evidence of malignancy. ?? No suspicious interval change. This will serve as a new baseline post implant placement. Suspect bilateral cysts. ASSESSMENT: ?? BI-RADS 2: BENIGN RECOMMENDATION(S): 1: Routine screening mammogram BILATERAL in 1 year. The patient and provider should consider supplementary screening breast ultrasound -------- FINAL REPORT -------- Dictated By: Richie Stevens Dictated Date: 05/24/2024 17:28 ET Assigned Physician: Richie Stevens Reviewed and Electronically Signed By: Richie Stevens Signed Date: 05/24/2024 17:38 ET Workstation ID: [id number] Transcribed By: Self Edit Transcribed Date: 05/24/2024 17:28 ET Narrative 05/24/2024 5:38 PM EST EXAM: ??SCREENING MAMMOGRAPHY, BILATERAL HISTORY: ??SCREENING. ??Mother and paternal grandmother with history of breast cancer. COMPARISON: ??03/22/2019 TECHNIQUE: Digital mammography of each breast in the craniocaudal and MLO projections. ADDITIONAL IMAGING: Synthesized CC and MLO projections of each breast. ??Tomosynthesis of each breast in the CC and MLO projections with implant displacement. Computer-aided detection was employed with the iCAD ??profound AI 3-D. TISSUE DENSITY: The breasts are heterogeneously dense, which may obscure small masses. (BI-RADS category C) FINDINGS: Interval breast implant placement. RIGHT BREAST: No suspicious mass. No suspicious calcification. No distortion. ?? There are some circumscribed equal density masses with typically benign features. ??Previous outside ultrasound has documented cysts. LEFT BREAST: No suspicious mass. No suspicious calcification. No distortion. ?? There are circumscribed equal density masses with typically benign features. Procedure Note Richie Stevens MD - 05/24/2024 EXAM: SCREENING MAMMOGRAPHY, BILATERAL HISTORY: SCREENING. Mother and paternal grandmother with history ofbreast cancer. COMPARISON: 03/22/2019 TECHNIQUE: Digital mammography of each breast in the craniocaudal and MLOprojections. ADDITIONAL IMAGING: Synthesized CC and MLO projections of each breast.Tomosynthesis of each breast in the CC and MLO projections with implantdisplacement. Computer-aided detection was employed with the [employer] AI 3-D. TISSUE DENSITY: The breasts are heterogeneously dense, which may obscuresmall masses. (BI-RADS category C) FINDINGS: Interval breast implant placement. RIGHT BREAST: No suspicious mass. No suspicious calcification. No distortion. Thereare some circumscribed equal density masses with typically benignfeatures. Previous outside ultrasound has documented cysts. LEFT BREAST: No suspicious mass. No suspicious calcification. No distortion. Thereare circumscribed equal density masses with typically benign features. IMPRESSION: No mammographic evidence of malignancy. No suspicious interval change. This will serve as a new baseline post implant placement. Suspect bilateral cysts. ASSESSMENT: BI-RADS 2: BENIGN RECOMMENDATION(S): 1: Routine screening mammogram BILATERAL in 1 year. The patient and provider should consider supplementary screening breastultrasound -------- FINAL REPORT -------- Dictated By: Richie Stevens Dictated Date: 05/24/2024 17:28 ET Assigned Physician: Richie Stevens Reviewed and Electronically Signed By: Richie Stevens Signed Date: 05/24/2024 17:38 ET Workstation ID: [id number] Transcribed By: Self Edit Transcribed Date: 05/24/2024 17:28 ET Avinash White [facility] BI PROCEDURES Fin al Result from Last 3 Months Insurance MEDICAID - [place] Care Teams Air Vice Marshal Relationship Specialty Start Date End Date Avinash Jiménez [address] [place], [place] PCP - General 09/16/22
--- OUTSIDE RECORDS SUMMARY | 2024-08-09 08:29 | XMS_ITS | Encounter Summary ---
Author Organization [employer] Address [address] [facility] 7 [place] [address] Care Team Providers Care Old Coin Dealer Name Role Phone Avinash Jiménez MD Primary Care Prov ider Encounter Details Date Type Department Care Team (Late st Contact Info) Description 09/05/2022 Orders Only [facility] MED & PEDS [address] [place] [address] Avinash Jiménez MD [address] [place] [address] Social History Tobacco Use Types Packs/Day Years [...] 10:00 AM EDT Office Visit [facility] ADULT DENTAL [address] [place] [address] Shilpa Da Silva, DDS [address] [place] [address] documented as of this encounter Visit Diagnoses Not on filedocumented in this encounter Care Teams Old Coin Dealer Relationship Specialty Start Date End Date Avinash Jiménez MD [address] [place] [address] PCP - General Internal Medicine 10/04/19 documented as of this encounter
--- OUTSIDE RECORDS SUMMARY | 2024-08-09 08:29 | XMS_ITS | Encounter Summary ---
Author Organization [employer] Address [address] [facility] 7 [place] [address] Care Team Providers Care Ash Conveyor Operator Name Role Phone Avinash Jiménez MD Primary Care Prov ider Reason for Visit * Reason Onset Date Comments Nurse Triage 09/01/2023 Encounter Details Date Type Department Care Team ([facility] st Contact Info) Description 09/01/2023 Telephone [facility] MED [facility] PEDS [address] [place], [place] [phone] Avinash Jiménez MD [address] [place], [place] [phone] Nurse Triage Social History Tobacco Use Types [...] encounter Miscellaneous Notes * Telephone Encounter - Irais Ritter RN - 09/01/2023 4:04 PM EDT Call to [facility] , reports having vaginal dscharge x today. Pt having vaginal itching , white discharge an redness. Per pt on last day of Macrobid. No flank pain, N/V or fever. PT advised that usually pt needs to be assessed. Pt unable to come into [facility] tomorrow. Needs appt after 4pm. Pt offered WIC. Pt states last time pt had these sx provider tx without seeing patient. Pt would like to see if possible to have rx sent. Will forward to PCP to review and further advise team nurses of plan of care. Protocol Used: Vaginal Discharge (Adult) Protocol-Based Disposition: See in Office or Video Visit within 3 Days Override (Final) Disposition: Discuss with PCP and Callback by Nurse Override Reason: Caller refused suggested disposition Positive Triage Question: * Symptoms of a yeast infection (i.e., itchy, white discharge, not bad smelling) and not improved > 3 days following Care Advice * All higher-acuity triage questions were negative Care Advice Discussed: * Reassurance and Education - Vaginal Yeast Infection * Reasons To Call Back - Discharge becomes yellow or green - Discharge becomes foul smelling or itchy - Fever or abdomen pain occur - You become worse * Telephone Encounter - Christina Brenner - 09/01/2023 4:03 PM EDT Tc from pt returning call and requesting a call back. * Telephone Encounter - Irais Ritter RN - 09/01/2023 3:59 PM EDT Call returned to [facility] for triage. No answer LVM to return call to [facility] triage line. Per chart review pt seen [facility] [place] [facility] for CP. No acute findings, Incidnetal finding of UTI with UA. Pt started on macrobid. * Telephone Encounter - Shelia Gray - 09/01/2023 3:57 PM EDT Symptom: Vaginal Symptoms - Not Bleeding Outcome: Schedule an appointment to be seen within 24 hours Reason: Caller denied all higher acuity questions, pt is requesting refill on fluconazole (Diflucan) 150 MG tablet The caller accepted this outcome Please contact pt at [phone] documented in this encounter Plan of Treatment Upcoming Encounters Date Type Department Care Team (Late st Contact Info) Description 08/11/2024 10:00 AM EDT Office Visit [facility] ADULT DENTAL [address] [place] [address] Shilpa Da Silva DDS [address] [place] [address] documented as of this encounter Visit Diagnoses Not on filedocumented in this encounter Additional Health Concerns Assessment Noted Time PHQ-9 Depression Total Score: 2 01/01/20 23 3:30 PM EDT documented as of this encounter Care Teams Ash Conveyor Operator Relationship Specialty Start Date End Date Avinash Jiménez MD [address] [place] [address] PCP - General Internal Medicine 10/04/19 documented as of this encounter
--- OUTSIDE RECORDS SUMMARY | 2024-08-09 08:29 | XMS_ITS | Encounter Summary ---
Author Organization [employer] Address [address] [facility] 7 [place] [address] Care Team Providers Care Residential Lawn Specialist Name Role Phone Avinash Jiménez MD Primary Care Prov ider Encounter Details Date Type Department Care Team (Late st Contact Info) Description 01/27/2024 Orders Only [facility] MED & PEDS [address] [place], [place] [phone] Avinash Jiménez MD [address] [place] [address] Social History Tobacco Use Types Packs/Day Years [...] [facility] ADULT DENTAL [address] [place] [address] Shilpa Da Silva, DDS [address] [place], [place] [phone] documented as of this encounter Visit Diagnoses Not on filedocumented in this encounter Additional Health Concerns Assessment Noted Time PHQ-9 Depression Total Score: 2 01/01/20 23 3:30 PM EDT documented as of this encounter Care Teams Residential Lawn Specialist Relationship Specialty Start Date End Date Avinash Jiménez MD [address] [place] [address] PCP - General Internal Medicine 10/04/19 documented as of this encounter
--- OUTSIDE RECORDS SUMMARY | 2024-08-09 08:29 | XMS_ITS | Encounter Summary ---
Author Organization [employer] Address [address] [place] [address] 7 [place] [address] Care Team Providers Care Supervisor International Reservations Name Role Phone Avinash Jiménez MD Primary Care Prov ider Encounter Details Date Type Department Care Team (Latest Contact Info) Description 07/23/2020 Abstract [facility] CONVERSIONS Dental, Provider, DDS Social History Tobacco [...] Description 08/11/2024 10:00 AM EDT Office Visit [facility] CHC ADULT DENTAL [address] [place] [address] Shilpa Da Silva, DDS [address] [place] [address] documented as of this encounter Visit Diagnoses Not on filedocumented in this encounter Care Teams Supervisor International Reservations Relationship Specialty Start Date End Date Avinash Jiménez MD [address] [place] [address] PCP - General Internal Medicine 10/04/19 documented as of this encounter
--- OUTSIDE RECORDS SUMMARY | 2024-08-09 08:29 | XMS_ITS | Encounter Summary ---
Author Organization [employer] Address [address] [facility] 7 [place] [address] Care Team Providers Care Service Employee Name Role Phone Avinash Jiménez MD Primary Care Prov ider Encounter Details Date Type Department Care Team (Late st Contact Info) Description 06/24/2022 Orders Only [facility] MEDICINE [address] [place] [address] Avinash Jiménez MD [address] [place], [place] [phone] Gastroesophageal reflux disease without esophagitis Social History Tobacco Use Types Packs/Day Years [...] Description 08/11/2024 10:00 AM EDT Office Visit [facility] ADULT DENTAL [address] [place] [address] Shilpa Da Silva DDS [address] [place], [place] [phone] documented as of this encounter Visit Diagnoses Diagnosis Gastroesophageal reflux disease without esophagitis Esophageal reflux documented in this encounter Care Teams Service Employee Relationship Specialty Start Date End Date Avinash Jiménez MD [address] [place] [address] PCP - General Internal Medicine 10/04/19 documented as of this encounter
--- OUTSIDE RECORDS SUMMARY | 2024-08-09 08:29 | XMS_ITS | Data Portability ---
Author Organization [place] [facility] Address [address] [place] [address] Care Team Providers Care Pit Steward Name Role Phone SOTERO KELLY Primary Care Provider Assessment Encounter Date Assessment Date Assessment LastModified by Organization Details LastModified Time 06/11/2016 06/11/2016 Audiogram: WNL AU Tympanogram: WNL AU Discriminatio n scores: 100% AU Not available 06/11/2016 10:34:08 Plan of Treatment Reminders Order Date Submit Date Provider Last Modified By Organization Details Last Modified Time Details Appointments None recorded. Lab None recorded. Referral None recorded. Procedures None recorded. Surgeries None recorded. Imaging videonystag mograph 2016 017 AMANUEL Not available 7 15:27:21 Medication Orders None recorded. Patient TargetsNo targets recorded. Patient InstructionsNo instructions recorded. Reason for Referral None Reported. Results Created Date Observation Date Name Description Value Unit Range Abnormal Flag Note LastModifiedBy Organization Detail LastModifiedTime 07/16/19 17 07/09/2016 video nysta gmogr aph No observ ation record ed. [email or web address] Not Available 2016 16:11:07 Result Notes None recorded. Procedures Surgical History None recorded. Imaging Results Imaging Date Name Status LastModified by Organization Details LastModified Time 07/09/2016 videonystagmograph completed [email or web address] Inform ation not available 09/05/2016 16:11:07 Procedure Notes None recorded. Medical Equipment None Reported. Medications Name Sig Start Date Stop Date Status Note LastModified by Organization Details LastModified Time acyclovir 400 mg tablet active Not Available Not Available Not Available Sudogest 30 mg tablet active Not Available Not Available No t Available meclizine 25 mg tablet active Not Available Not Available No t Available econazole nitrate 1 % topical cream active Not Available Not Available Not Available promethazine 25 mg tablet active Not Available Not Available Not Available PrePlus 27 mg iron-1 mg tablet active Not Available Not Available Not Available Fluarix Quad 2773-6822 (PF) 60 mcg (15 mcg x 4)/0.5 mL IM syringe TO BE ADMINISTERE D BY PHARMACIST FOR IMMUNIZATIO N active Not Available Not Available No t Available Vitals Date Recorded Body height Body weight Body mass index (BMI) Provider Name and Address Organization Details Last Updated DateTime 06/11/2016 165.1 cm 05100.63 g 25.5 kg/m2 Ariana Matthews [facility] 06/11/2016 09:37:22 Date Recorded Respiratory rate Provider Name a nd Address Organization Details Last Updated DateTime 06/11/2016 14 /min Kena Loconte P.A. [address] [facility] [address], [place], [address], [facility] 06/11/2016 09:40:37 Social History None recorded. Functional Status None recorded. Mental Status None recorded. Family History Nothing Reported. Medical History Condition Response Allergies/Hayfever N Acid reflux (GERD) N Heart Conditions N Liver Disease/Jaundice N Emphysema N Migraines N Thyroid Problems N Glaucoma N Depression N HIV/Sexually Transmitted Disease N Anemia N Heart Attack (MD) N N Diabetes N Bleeding Disorder N Hearing Loss N Arthritis N Cancer N Stroke N Asthma N Sleep Disorder N Hypertension N Speech Delay N Kidney Disease N Gynecological HistoryNo gynecological history recorded. Obstetrics History GPAL:G 0 P 0 0 0 0 Past Encounters Encounter ID Performer Location Encounter Start Date Encounter Closed Date Diagnosis/Indication Diagnosis SNOMED-CT Code Diagnosis ICD10 Code Diagnosis Note [id number] Riaz Washington MD Main Office [address] [facility],[address] [place] [address] 06/11/2016 09:25:03 06/11/2016 10:31:00 Vertigo 252201960 R42 -Unclear etiology of vertigo based on history provided today-Disc ussed normal physical exam findings including neurologic al exam components and [place]by-Hallpi ke testing-Re commend VNG to rule out peripheral vestibulop athy-F/U after testing to discuss results Anxiety 89813830 F41.9 -Unclear if anxiety is an exacerbati ng factor-See #1 Deviated nasal septum 12 8237959 J34.2 -Incidenta l physical exam finding-De philip treatment as patient is asymptomat ic Health Concerns Section Related Observation LastModified by Organization Detai ls LastModified Time None Recorded Concern Status LastModified by Organization Details LastModified Time None Recorded Advance Directives Directive None Recorded Payers Encounter Date Sequence Insurance Name Policy Number Policy Martin Covered Member ID Martin Member ID Guarantor Name 06/11/2016 1 [facility] [place] [facility] [employer] (MEDICAID HMO) [id number] More Mc[facility] [id number] [facility] Notes Date Note Type Note Provider Name a nd Address Organization Details Recorded Time 7 text/html 30 yo female c/o 2 week of intermittent dizzinessdenies any recent illness or other inciting eventsdescribes the episodes as ? r oom spinning sensationevents typically last 2 hoursoccurred for 1 entire weektriggered by positional head changesand when she observes movementis not currently using meclizine, has used in pastsame problem years agoalso c/o sensation of blocked ears intermittent, believes with waxnot worse with dizzinessdenies tinnitusdenies h/o of migraines and neck problems+ h/o anxiety- severe no medication currently Riaz Washington MD [address] [facility] [address], [place], [address], [facility] 06/12/2016 00:02:39 OBGyn Episode No OBEpisode recorded.
--- OUTSIDE RECORDS SUMMARY | 2024-08-09 08:29 | XMS_ITS | Encounter Summary ---
Author Organization [employer] Address [address] [facility] 7 [place] [address] Care Team Providers Care Quality Management Coordinator Name Role Phone Avinash Jiménez MD Primary Care Prov ider Reason for Visit * Reason Onset Date Comments Med Refill 04/18/2024 Encounter Details Date Type Department Care Team (Late st Contact Info) Description 04/18/2024 Telephone [facility] MEDICINE [address] [place] [address] Avinash Jiménez MD [address] [place] [address] Med Refill Social History Tobacco Use Types Packs/Day Years [...] encounter Miscellaneous Notes * Telephone Encounter - Brigid Martínez LPN - 04/18/2024 2:06 PM EST Please review request below.Medication is not on current med list * Telephone Encounter - Raul Rodriguez - 04/18/2024 2:02 PM EST TC from pt requesting medication refill. Medications needing refill : valACYclovir (Valtrex) 1 g tablet To be sent to: [facility]/pharmacy #[id number] [place], [place] - [address] [facility] documented in this encounter Plan of Treatment Upcoming Encounters Date Type Department Care Team (Late st Contact Info) Description 08/11/2024 10:00 AM EDT Office Visit [facility] [address] [place] [address] Shilpa Da Silva DDS [address] [place] [address] documented as of this encounter Visit Diagnoses Not on filedocumented in this encounter Additional Health Concerns Assessment Noted Time PHQ-9 Depression Total Score: 2 01/01/20 23 3:30 PM EDT documented as of this encounter Care Teams Quality Management Coordinator Relationship Specialty Start Date End Date Avinash Jiménez MD [address] [place] [id number] PCP - General Internal Medicine 10/04/19 documented as of this encounter
== END 2024-08-09 08:17 | disposition home or self-care (01) ==
LOC: HO.US 08:16
PROVIDERS: PCP Internal Medicine; Visit Provider Internal Medicine
DX: K82.4 Cholesterolosis of gallbladder (principal)
CPT/HCPCS: 76705

== ENCOUNTER → 2024-08-09 08:18 | Outpatient (BNV) | payer MEDICAID, SELFPAY | PROVIDERS: PCP Internal Medicine; Visit Provider Radiology Diagnostic Radiology | DX: K82.4 Cholesterolosis of gallbladder (principal) | CPT/HCPCS: 76705 ==

== ENCOUNTER 2024-10-07 14:48 | Outpatient (REF) | payer MEDICAID, SELFPAY ==
--- OUTSIDE RECORDS SUMMARY | 2024-10-07 14:50 | XMS_ITS | Clinical Summary ---
Author Organization [facility] Address [address] [place] [address] Phone Care Team Providers Care Chief Human Resources Officer Name Role Phone Avinash Jiménez Primary Care Provide r Surgical History Surgery Date Site/Laterality Comments BREAST [...] season) 2024 05/07/2021, 07/09/2020, 06/18/2020 Influenza Vaccine (Season Ended) 2025 03/31/2022, 03/03/2016, 02/05/2015, Additional history exists Breast Cancer Screening 05/21/2026 05/21/2024 HPV Vaccines Completed 03/17/2011, 11/2010, 12/19/2009 Hepatitis [...] age to complete this topic Meningococcal B Vaccine Aged Out No l onger eligible based on patient's age to complete [...] neoplasm of breast from Last 3 Months or Most Recently Relevant to Health Maintenance Results * MG Mammo Digital Screening w [...] Signed Date: 05/24/2024 17:38 ET Workstation ID: [id number] Transcribed By: Self Edit Transcribed Date: 05/24/2024 [...] implantdisplacement. Computer-aided detection was employed with the iCAD NeurOp AI 3-D. TISSUE DENSITY: The breasts are [...] breastultrasound -------- FINAL REPORT -------- Dictated By: Rihcie Stevens Dictated Date: 05/24/2024 17:28 ET Assigned Physician: Richie Stevens Reviewed and Electronically Signed By: Richie Stevens Signed Date: 05/24/2024 17:38 ET Workstation ID: [id number] Transcribed By: Self Edit Transcribed Date: 05/24/2024 17:28 ET Avinash White IMG BI PROCEDURES Fin al Result from Last 3 Months or Most Recently Relevant to Health Maintenance Insurance MEDICAID - [place] Care Teams Chief Human Resources Officer Relationship Specialty Start Date End Date Avinash Jiménez [address] [place], [place] PCP - General 09/16/22
[2024-10-07 17:02] LABS: MANUAL DIFF FLAG NO
[2024-10-07 17:19] LABS: Basophils Absolute Auto 0.1 X10*3/uL (0.0-0.2); Basophils Percent Auto 0.8 % (0-2); Eosinophils Absolute Auto 0.1 X10*3/uL (0.0-0.4); Eosinophils Percent Auto 1.8 % (0-4); Hematocrit 34.3 % (37.0-47.0); Hemoglobin 11.4 g/dl (12.0-16.0); Imm Gran Abs Auto 0.02 X10*3/uL (0.00-0.03); Imm Gran Pct Auto 0.3 % (0.0-0.4); Lymphocytes Percent Auto 28.7 % (20-40); Mean Corpuscular HGB Conc 33.2 g/dl (31.0-35.0); Mean Corpuscular Hemoglobin 25.6 pg (27.0-33.0); Mean Corpuscular Volume 77.1 fL (80.0-98.0); Mean Platelet Volume 11.2 fL (9.4-12.3); Monocytes Absolute Auto 0.6 X10*3/uL (0.1-1.2); Monocytes Percent Auto 8.6 % (2-11); Neutrophils Absolute Auto 4.2 x10*3/uL (2.0-8.3); Neutrophils Percent Auto 59.8 % (45-73); Platelet Count 369 X10*3/uL (160-400); Red Blood Count 4.45 X10*6/uL (4.20-5.50); Red Cell Distribution Width 17.2 % (11.0-16.0); White Blood Count 7.1 X10*3/uL (4.8-10.8)
[2024-10-07 17:21] LABS: Basophils Absolute Auto 0.1 X10*3/uL (0.0-0.2); Basophils Percent Auto 0.7 % (0-2); Eosinophils Absolute Auto 0.1 X10*3/uL (0.0-0.4); Eosinophils Percent Auto 1.7 % (0-4); Hemoglobin 11.1 g/dl (12.0-16.0); Imm Gran Abs Auto 0.01 X10*3/uL (0.00-0.03); Imm Gran Pct Auto 0.1 % (0.0-0.4); Lymphocytes Percent Auto 29.7 % (20-40); Mean Corpuscular HGB Conc 31.7 g/dl (31.0-35.0); Mean Corpuscular Hemoglobin 24.7 pg (27.0-33.0); Mean Platelet Volume 11.4 fL (9.4-12.3); Monocytes Absolute Auto 0.6 X10*3/uL (0.1-1.2); Monocytes Percent Auto 8.3 % (2-11); Neutrophils Absolute Auto 4.1 x10*3/uL (2.0-8.3); Neutrophils Percent Auto 59.5 % (45-73); Platelet Count 357 X10*3/uL (160-400); Red Blood Count 4.49 X10*6/uL (4.20-5.50); Red Cell Distribution Width 17.4 % (11.0-16.0); White Blood Count 6.9 X10*3/uL (4.8-10.8)
[2024-10-07 17:25] LABS: Estimated Average Glucose 114 mg/dL; Hemoglobin A1c % 5.6 % (<6.0)
[2024-10-07 17:30] LABS: Alanine Aminotransferase 36 U/L (0-31); Albumin Level 4.3 g/dL (3.5-5.0); Anion Gap 9 (12-20); Aspartate Amino Transferase 33 U/L (5-31); Bilirubin Total 0.4 mg/dL (0.0-1.0); Blood Urea Nitrogen 11 mg/dL (9-16); Calcium 9.4 mg/dL (8.4-10.2); Carbon Dioxide 26 mmol/L (22-29); Chloride 105 mmol/L (96-108); Cholesterol 291 mg/dL (<200); Estimated Glomerular Filt Rate > 60; Glucose Random 92 mg/dL (60-115); HDL Cholesterol 45 mg/dL (>40); LDL Cholesterol Calculated 177 mg/dL (<100); Potassium 3.9 mmol/L (3.3-5.1); Sodium 136 mmol/L (135-145); Triglycerides 348 mg/dL (<150)
[2024-10-07 17:34] LABS: Alanine Aminotransferase 33 U/L (0-31); Albumin Level 4.3 g/dL (3.5-5.0); Anion Gap 9 (12-20); Aspartate Amino Transferase 32 U/L (5-31); Bilirubin Total 0.4 mg/dL (0.0-1.0); Blood Urea Nitrogen 11 mg/dL (9-16); Calcium 9.4 mg/dL (8.4-10.2); Carbon Dioxide 26 mmol/L (22-29); Chloride 105 mmol/L (96-108); Estimated Glomerular Filt Rate > 60; Glucose Random 93 mg/dL (60-115); Potassium 3.9 mmol/L (3.3-5.1); Sodium 136 mmol/L (135-145)
[2024-10-07 17:46] LABS: TSH reflex Free T4 1.01 uIU/mL (0.32-4.0)
[2024-10-07 17:49] LABS: TSH reflex Free T4 0.98 uIU/mL (0.32-4.0)
[2024-10-07 17:53] LABS: Alkaline Phosphatase 48 U/L (39-117)
[2024-10-07 18:27] LABS: Alkaline Phosphatase 47 U/L (39-117)
[2024-10-09 03:52] LABS: HIV AB/AG Nonreactive (Nonreactive); HIV Num 1 0.05 S/CO (0.00-0.99); ~HepC Num1 0.11 S/CO (0.00-0.79); ~Hepatitis C Antibody Nonreactive (Nonreactive)
== END 2024-10-07 14:49 | disposition home or self-care (01) ==
LOC: HO.HHCL 14:48
PROVIDERS: Internal Medicine; Visit Provider Nurse Practitioner Family
DX: K21.9 Gastro-esophageal reflux disease without esophagitis (principal); R53.83 Other fatigue; L83 Acanthosis nigricans
CPT/HCPCS: 36415; 80053; 80061; 82306; 83036; 84443; 85025; 86803; 87389

== ENCOUNTER 2024-11-18 11:09 | Outpatient (REF) | payer MEDICAID, SELFPAY ==
--- OUTSIDE RECORDS SUMMARY | 2024-11-18 11:47 | XMS_ITS | Clinical Summary ---
Author Organization [facility] Address [address] [place] [address] Phone Care Team Providers Care Legal Administrative Secretary Name Role Phone Avinash Jiménez Primary Care [...] 2024 05/07/2021, 07/09/2020, 06/18/2020 Influenza Vaccine (#1) 2025 , 03/03/2016, 02/05/2015, Additional history exists Breast Cancer [...] 5 Years) and At-Risk Patients (6 to 49 Years) Aged Out No longer eligible based [...] PM EST No mammographic evidence of malignancy. No suspicious [...] Signed Date: 05/24/2024 17:38 ET Workstation ID: [id number] Transcribed By: Self Edit Transcribed Date: 05/24/2024 17:28 ET Narrative 05/24/2024 5:38 PM EST EXAM: SCREENING MAMMOGRAPHY, BILATERAL HISTORY: SCREENING. Mother and paternal grandmother with history of breast cancer. COMPARISON: 03/22/2019 TECHNIQUE: Digital mammography of each breast in the craniocaudal and MLO projections. ADDITIONAL IMAGING: Synthesized CC and MLO projections of each breast. Tomosynthesis of each breast in the CC and MLO projections with implant displacement. Computer-aided detection was employed with the Mobbles 3-D. TISSUE DENSITY: The breasts are heterogeneously dense, which may obscure small masses. (BI-RADS category C) FINDINGS: Interval breast implant placement. RIGHT BREAST: No suspicious mass. No suspicious calcification. No distortion. There are some circumscribed equal density masses with typically benign features. Previous outside ultrasound has documented cysts. LEFT BREAST: No suspicious mass. No suspicious calcification. No distortion. There are circumscribed equal density masses with [...] Computer-aided detection was employed with the iCAD profound AI 3-D. TISSUE DENSITY: The breasts are [...] Signed Date: 05/24/2024 17:38 ET Workstation ID: [id number] Transcribed By: Self Edit Transcribed Date: 05/24/2024 17:28 ET Avinash White IMG BI PROCEDURES Fin al Result from Last 3 Months or Most Recently Relevant to Health Maintenance Insurance MEDICAID - [place] Care Teams Legal Administrative Secretary Relationship Specialty Start Date End Date Avinash Jiménez [address] [place] [address] PCP - General 09/16/22
--- OUTSIDE RECORDS SUMMARY | 2024-11-18 11:47 | XMS_ITS | Encounter Summary ---
Author Organization [employer] Address [address] [facility] 7 [place] [address] Care Team Providers Care Quality Auditor Name Role Phone Avinash Jiménez MD Primary Care Prov ider Reason for Visit * Reason Onset Date Comments Appointment Request 09/28/2023 Encounter Details Date Type Department Care Team (Late st Contact Info) Description 09/28/2023 Telephone [facility] MEDICINE [address] [place] [address] Avinash Jiménez MD [address] [place] [address] Appointment Request Social History Tobacco Use Types [...] Care Team (Late st Contact Info) Description 11/29/2024 9:00 AM EDT Office Visit [facility] [address] [place] [address] Jaylene Gaona MD [address] [place] [address] 01/30/2025 1:15 PM EDT Office Visit [facility] [address] [place] [address] Avinash Jiménez MD [address] [place] [address] documented as of this encounter Visit Diagnoses Not on filedocumented in this encounter Additional Health Concerns Assessment Noted Time PHQ-9 Depression Total Score: 2 01/01/20 23 3:30 PM EDT documented as of this encounter Care Teams Quality Auditor Relationship Specialty Start Date End Date Avinash Jiménez MD [address] [place] [address] PCP - General Internal Medicine 10/04/19 documented as of this encounter
--- OUTSIDE RECORDS SUMMARY | 2024-11-18 11:47 | XMS_ITS | Data Portability ---
Author Organization [place] - [facility]- Address [address] [place] [address] Care Team Providers Care Engineering Operator Name Role Phone SOTERO KELLY Primary Care Provider Assessment Encounter Date Assessment Date Assessment LastModified by Organization Details LastModified Time 06/11/2016 06/11/2016 Audiogram: WNL AU Tympanogram: WNL AU Discriminatio n scores: 100% AU [email or web address] Not available 06/11/2016 10:34:08 Plan of Treatment [...] Available 2016 16:11:07 Result Notes None recorded. Medical Equipment None Reported. [...] Available Not Available Not Available Fluarix Quad [id number] (PF) 60 mcg (15 mcg x 4)/0.5 mL IM syringe TO BE ADMINISTERE D BY PHARMACIST FOR IMMUNIZATIO N active Not Available Not Available No t Available Vitals Date Recorded Respiratory rate Provider Name a nd Address Organization Details Last Updated DateTime 06/11/2016 14 /min Kena Macarioe P.A. [address] [facility] [address], [place], [address], [facility] 06/11/2016 09:40:37 Date Recorded Body height Body weight Body mass index (BMI) Provider Name and Address Organization Details Last Updated DateTime 06/11/2016 165.1 cm 23465.63 g 25.5 kg/m2 Ariana Matthews [facility] 06/11/2016 09:37:22 Social History None recorded. Functional Status None recorded. Mental Status None recorded. Family History Nothing Reported. Medical History Condition Response Allergies/Hayfever N Acid reflux (GERD) N Heart Conditions N Liver Disease/Jaundice N Emphysema N Migraines N Thyroid Problems N Glaucoma N Depression N HIV/Sexually Transmitted Disease N Anemia N Heart Attack ([place]) N N Diabetes N Bleeding Disorder N [...] SNOMED-CT Code Diagnosis ICD10 Code Diagnosis Note [id number] Riaz Washington MD Main Office [address] [place] [address] 06/11/2016 09:25:03 06/11/2016 10:31:00 Vertigo [id number] R42 -Unclear etiology of vertigo based on history provided today-Disc ussed normal physical exam findings including neurologic al exam components and Harris-Hallpi ke testing-Re commend VNG to rule out peripheral vestibulop athy-F/U after testing to discuss results Anxiety 85431512 F41.9 -Unclear if anxiety is an exacerbati ng factor-See #1 Deviated nasal septum 12 [id number] J34.2 -Incidenta l physical exam finding-De philip treatment as patient is asymptomat ic Health Concerns Section Related Observation LastModified by Organization Detai ls LastModified Time None Recorded Concern Status LastModified by Organization Details LastModified Time None Recorded Advance Directives Directive None Recorded Payers Insurance Date Sequence Insurance Name Policy Number Policy Martin Covered Member ID Martin Member ID Guarantor Name 09/10/2016 1 [facility] PLAN (MEDICAID HMO) [id number] More Mcrae [id number] More Mcrae Notes Date Note Type Note Provider Name a nd Address Organization Details Recorded Time 7 text/html 30 yo female c/o 2 week of intermittent dizzinessdenies any recent illness or other inciting eventsdescribes the episodes as room spinning sensationevents typically last 2 hoursoccurred for 1 entire weektriggered by positional head changesand when she observes movementis not currently using meclizine, has used in pastsame problem years agoalso c/o sensation of blocked ears intermittent, believes with waxnot worse with dizzinessdenies tinnitusdenies h/o of migraines and neck problems+ h/o anxiety- severe no medication currently Riaz Washington MD [address] [place] [address] [address], [place], [address], [facility] 06/12/2016 00:02:39 OBGyn Episode No OBEpisode recorded.
[2024-11-18 15:20] LABS: Iron 54 mcg/dL (30-160); Percent Iron Saturation 15 % (15-50); Total Iron Binding Capacity 364 mcg/dL (228-428); Unsaturated Iron Binding 310 ug/dL
[2024-11-18 15:43] LABS: Folate 13.6 ng/mL (> or = 4.0); Vitamin B12 427 pg/mL (200-900)
== END 2024-11-18 11:10 | disposition home or self-care (01) ==
LOC: HO.CHCLDS 11:09
PROVIDERS: Visit Provider Internal Medicine
DX: D64.9 Anemia, unspecified (principal)
CPT/HCPCS: 36415; 82607; 82746; 83540